=== PATIENT | female | born 1955 | race Caucasian/White ===

== ENCOUNTER 2018-02-27 16:40 | Emergency (ER) | payer MEDICAID ==
[~2018-02-27] VITALS: Ht 165.1 cm; Wt 80.0 kg
[~2018-02-27 16:40] MED LIST: ALBU6.7H INH; LEVO500T2 PO
[2018-02-27] MEDS ORDERED: METHYLPREDNISOLONE SOD SUCC 125 MG/2 ML VIAL IV STA (18:31)
[2018-02-27] MEDS ORDERED: IPRATROPIUM BROMIDE (0.02%) 0.5MG/2.5ML NEB HHN STA (18:31)
[2018-02-27] MEDS ORDERED: ALBUTEROL (0.083%) 2.5MG/3ML NEB HHN STA (18:31)
[2018-02-27 19:43] LABS: BASOPHILS % 0.7 % (0.0-2.0); EOSINOPHILS % 0.8 % (0.0-5.0); HEMATOCRIT. 56.1 % (36.0-48.0); HEMOGLOBIN. 17.9 g/dL (12.0-16.0); MEAN CORPUSCULAR HEMOGLOBIN 29.3 pg (28.0-32.0); MEAN CORPUSCULAR VOLUME 91.6 fL (81.0-99.0); MEAN PLATELET VOLUME 7.7 fl (7.4-10.4); MONOCYTES % 9.6 % (2.0-8.0); NEUTROPHILS % 63.9 % (40.0-76.0); PLATELET 268 x1000/uL (130-400); RED BLOOD CELL COUNT 6.12 mill/uL (4.2-5.4)
[2018-02-27 19:45] LABS: CHLORIDE 101 mEq/L (98-107)
[2018-02-27] MEDS ORDERED: LEVOFLOXACIN 250MG TABLET PO ONE (20:45)
[2018-02-27 23:29] VITALS: BP 116/75
== END 2018-02-27 23:30 | disposition home or self-care (01) ==
LOC: ER 16:50
DX: J06.9 Acute upper respiratory infection, unspecified (principal); J98.01 Acute bronchospasm
CPT/HCPCS: 36415; 71045; 80053; 83605; 83690; 83880; 84484; 85025; 87040; 93005; 96374; 99285; J2930; Z7610

== ENCOUNTER 2018-03-02 15:45 | Inpatient (IN) | payer MEDICAID ==
[~2018-03-02] VITALS: Ht 160 cm; Wt 83.9 kg
[2018-03-02] MEDS ORDERED: METHYLPREDNISOLONE SOD SUCC 125 MG/2 ML VIAL IV STA (16:11)
[2018-03-02] MEDS ORDERED: IPRATROPIUM/ALBUTEROL 0.5-3(2.5)MG/3ML NEB HHN ONE (16:15)
[2018-03-02 17:00] LABS: BASOPHILS % 0.5 % (0.0-2.0); HEMATOCRIT. 51.2 % (36.0-48.0); HEMOGLOBIN. 16.5 g/dL (12.0-16.0); LYMPHOCYTES % 18.8 % (20.0-50.0); MEAN CORPUSCULAR HEMOGLOBIN 29.3 pg (28.0-32.0); MEAN CORPUSCULAR VOLUME 91.3 fL (81.0-99.0); MONOCYTES % 2.9 % (2.0-8.0); NEUTROPHILS % 77.8 % (40.0-76.0); PLATELET 259 x1000/uL (130-400); RED BLOOD CELL COUNT 5.61 mill/uL (4.2-5.4); RED CELL DISTRIBUTION WIDTH 15.9 % (11.6-14.6)
[2018-03-02 17:03] LABS: CHLORIDE 100 mEq/L (98-107)
[2018-03-02 17:09] LABS: D-DIMER 0.28 mg/L FEU (<0.50); INR 1.1; PARTIAL THROMBOPLASTIN TIME 25.7 sec (23.4-31.0); PROTHROMBIN TIME 10.8 sec (9.1-11.1)
[2018-03-02] MEDS ORDERED: LEVOFLOXACIN 750MG PREMIX 150 ML IV ONE (17:15)
[2018-03-02 19:07] LABS: CLARITY URINE CLOUDY (CLEAR); COLOR URINE YELLOW (YELLOW); KETONES URINE NEGATIVE (NEGATIVE); LEUKOCYTE ESTERASE URINE TRACE (NEGATIVE); NITRITE URINE NEGATIVE (NEGATIVE); OCCULT BLOOD URINE NEGATIVE (NEGATIVE); PROTEIN URINE NEGATIVE (NEGATIVE); SPECIFIC GRAVITY URINE 1.024 (1.005-1.030)
[2018-03-02] MEDS ORDERED: MAGNESIUM/ALUMINUM HYDROXIDE/SIMETHICONE 30ML UDC PO PRN (19:30)
[2018-03-02] MEDS ORDERED: CLONIDINE 0.1MG TABLET PO PRN (19:30)
[2018-03-02] MEDS ORDERED: IBUPROFEN 600MG TABLET PO ONE (20:15)
[2018-03-02 21:45] VITALS: BP 137/82
[2018-03-02 21:56] LABS: *AMPHETAMINES SCREEN URINE NEGATIVE (NEGATIVE); *BARBITURATES SCREEN URINE NEGATIVE (NEGATIVE); *BENZODIAZEPINES SCREEN URINE NEGATIVE (NEGATIVE); *COCAINE SCREEN URINE NEGATIVE (NEGATIVE); CANNABINOID URINE SCREEN NEGATIVE (NEGATIVE); METHADONE URINE SCREEN NEGATIVE (NEGATIVE); OPIATES URINE SCREEN NEGATIVE (NEGATIVE); PHENCYCLIDINE URINE SCREEN NEGATIVE (NEGATIVE)
[2018-03-02] MEDS: GUAIFENESIN 200MG/10ML SUGAR FREE UDC PO PRN (21:56)
[2018-03-02] MEDS: METHYLPREDNISOLONE SOD SUCC 125 MG/2 ML VIAL IV SCH (21:57)
[2018-03-02] MEDS: BUDESONIDE 0.5MG/2ML NEB HHN SCH (22:42)
[2018-03-02] MEDS: IPRATROPIUM/ALBUTEROL 0.5-3(2.5)MG/3ML NEB INH PRN (22:43)
[2018-03-02 23:00] VITALS: BP 137/82
[2018-03-03] VITALS: BP 146/83
[2018-03-03 00:45] LABS: CHLORIDE 100 mEq/L (98-107)
[2018-03-03 00:54] LABS: CREATINE KINASE 74 IU/L (26-192)
[2018-03-03 00:59] LABS: CREATINE KINASE MB FRACTION 1.3 ng/mL (0.5-3.6)
[2018-03-03] MEDS: GUAIFENESIN 200MG/10ML SUGAR FREE UDC PO PRN ×3 (01:47→13:48)
[2018-03-03] MEDS ORDERED: DEXTROSE 50% WATER 50ML SYRINGE IV PRN (03:00)
[2018-03-03 04:00] VITALS: BP 107/55
[2018-03-03] MEDS: INSULIN LISPRO 100 UNITS/ML SUBCUT SCH ×4 (05:50→21:00)
[2018-03-03] MEDS: METHYLPREDNISOLONE SOD SUCC 125 MG/2 ML VIAL IV SCH ×2 (05:50→13:45)
[2018-03-03] MEDS: BLOOD SUGAR DIAGNOSTIC STRIP TEST SCH ×4 (05:50→21:03)
[2018-03-03 06:19] LABS: HEMATOCRIT. 51.2 % (36.0-48.0); HEMOGLOBIN. 16.7 g/dL (12.0-16.0); MEAN CORPUSCULAR HEMOGLOBIN 29.6 pg (28.0-32.0); MEAN CORPUSCULAR VOLUME 91.1 fL (81.0-99.0); MEAN PLATELET VOLUME 8.1 fl (7.4-10.4); PLATELET 265 x1000/uL (130-400); RED BLOOD CELL COUNT 5.62 mill/uL (4.2-5.4); RED CELL DISTRIBUTION WIDTH 15.9 % (11.6-14.6)
[2018-03-03 06:39] LABS: LDL CHOLESTEROL 105 mg/dL (5-100)
[2018-03-03 06:40] LABS: CREATINE KINASE 58 IU/L (26-192); HDL CHOLESTEROL 52 mg/dL (40-59)
[2018-03-03 06:42] LABS: CREATINE KINASE MB FRACTION < 1.0 ng/mL (0.5-3.6)
[2018-03-03 08:00] VITALS: BP 125/66
[2018-03-03] MEDS: ENOXAPARIN 40MG/0.4ML SYR SUBCUT SCH (09:10)
[2018-03-03] MEDS: ACETAMINOPHEN 325MG TABLET PO PRN (09:15)
[2018-03-03] MEDS: BUDESONIDE 0.5MG/2ML NEB HHN SCH ×2 (09:22→20:43)
[2018-03-03] MEDS: IPRATROPIUM/ALBUTEROL 0.5-3(2.5)MG/3ML NEB INH PRN ×2 (09:27→20:43)
[2018-03-03] MEDS: AMLODIPINE 2.5MG TABLET PO SCH ×2 (11:30→20:58)
[2018-03-03] MEDS: HYDROCODONE/ACETAMINOPHEN 5/325MG TABLET PO PRN ×2 (12:49→21:00)
[2018-03-03 12:54] LABS: PLATELET ESTIMATE NORMAL
[2018-03-03 16:00] VITALS: BP_SYST 119; BP_SYST 126; BP_DIAS 74; BP_DIAS 76
[2018-03-03] MEDS: LEVOFLOXACIN 500MG PREMIX 100 ML IV SCH (18:29)
[2018-03-03 19:30] VITALS: BP 147/65
[2018-03-03 20:00] VITALS: BP 123/72
[2018-03-03] MEDS: GUAIFENESIN 600MG ER TABLET PO SCH (20:58)
[2018-03-04] VITALS: BP 105/60
[2018-03-04] MEDS: IPRATROPIUM/ALBUTEROL 0.5-3(2.5)MG/3ML NEB INH PRN ×3 (00:22→07:40)
[2018-03-04] MEDS: HYDROCODONE/ACETAMINOPHEN 5/325MG TABLET PO PRN (02:28)
[2018-03-04 04:00] VITALS: BP 100/62
[2018-03-04] MEDS: BLOOD SUGAR DIAGNOSTIC STRIP TEST SCH ×4 (07:09→20:45)
[2018-03-04] MEDS: INSULIN LISPRO 100 UNITS/ML SUBCUT SCH ×4 (07:09→20:45)
[2018-03-04] MEDS: BUDESONIDE 0.5MG/2ML NEB HHN SCH ×2 (07:39→20:28)
[2018-03-04 08:00] VITALS: BP 106/62
[2018-03-04 08:22] LABS: HEMATOCRIT. 49.5 % (36.0-48.0); MEAN CORPUSCULAR HEMOGLOBIN 29.3 pg (28.0-32.0); MEAN CORPUSCULAR VOLUME 90.5 fL (81.0-99.0); MEAN PLATELET VOLUME 8.1 fl (7.4-10.4); PLATELET 252 x1000/uL (130-400); RED BLOOD CELL COUNT 5.47 mill/uL (4.2-5.4)
[2018-03-04 08:49] LABS: CHLORIDE 99 mEq/L (98-107)
[2018-03-04 08:57] LABS: PHOSPHORUS 2.8 mg/dL (2.5-4.9)
[2018-03-04 08:58] LABS: LDL CHOLESTEROL 106 mg/dL (5-100)
[2018-03-04 08:59] LABS: CREATINE KINASE 41 IU/L (26-192); CREATINE KINASE MB FRACTION < 1.0 ng/mL (0.5-3.6)
[2018-03-04 09:00] LABS: HDL CHOLESTEROL 49 mg/dL (40-59)
[2018-03-04] MEDS: AMLODIPINE 2.5MG TABLET PO SCH ×2 (09:00→20:41)
[2018-03-04] MEDS: GUAIFENESIN 600MG ER TABLET PO SCH ×2 (09:14→20:39)
[2018-03-04] MEDS: ENOXAPARIN 40MG/0.4ML SYR SUBCUT SCH (09:16)
[2018-03-04 12:00] VITALS: BP 105/65
[2018-03-04 13:16] LABS: PLATELET ESTIMATE NORMAL
[2018-03-04] MEDS ORDERED: POTASSIUM CHLORIDE 20MEQ TABLET SR PO NR (14:15)
[2018-03-04] MEDS ORDERED: POTASSIUM CHLORIDE 20MEQ TABLET SR PO SCH (15:10)
[2018-03-04] MEDS: LEVOFLOXACIN 500MG PREMIX 100 ML IV SCH (15:57)
[2018-03-04 16:00] VITALS: BP 101/69
[2018-03-04 20:00] VITALS: BP 114/58
[2018-03-04] MEDS: IPRATROPIUM/ALBUTEROL 0.5-3(2.5)MG/3ML NEB HHN SCH (20:29)
[2018-03-04] MEDS: MICONAZOLE NITRATE 2% OINT 71GM TOP SCH (20:40)
[2018-03-04] MEDS: DOCUSATE SODIUM 100MG CAPSULE PO PRN (21:47)
[2018-03-04] MEDS: GUAIFENESIN 200MG/10ML SUGAR FREE UDC PO PRN (23:45)
[2018-03-05] VITALS: BP_SYST 100; BP_SYST 110; BP_SYST 112; BP_DIAS 61; BP_DIAS 64; BP_DIAS 65
[2018-03-05] MEDS: IPRATROPIUM/ALBUTEROL 0.5-3(2.5)MG/3ML NEB HHN SCH ×4 (02:25→20:51)
[2018-03-05 04:00] VITALS: BP 99/61
[2018-03-05] MEDS: BLOOD SUGAR DIAGNOSTIC STRIP TEST SCH ×4 (06:43→20:43)
[2018-03-05] MEDS: INSULIN LISPRO 100 UNITS/ML SUBCUT SCH ×4 (06:43→20:43)
[2018-03-05 07:08] LABS: BASOPHILS % 0.4 % (0.0-2.0); EOSINOPHILS % 0.5 % (0.0-5.0); HEMATOCRIT. 50.7 % (36.0-48.0); HEMOGLOBIN. 16.2 g/dL (12.0-16.0); LYMPHOCYTES % 23.9 % (20.0-50.0); MEAN CORPUSCULAR HEMOGLOBIN 29.3 pg (28.0-32.0); MEAN CORPUSCULAR VOLUME 91.6 fL (81.0-99.0); MEAN PLATELET VOLUME 7.9 fl (7.4-10.4); NEUTROPHILS % 64.2 % (40.0-76.0); PLATELET 241 x1000/uL (130-400); RED BLOOD CELL COUNT 5.53 mill/uL (4.2-5.4); RED CELL DISTRIBUTION WIDTH 16.2 % (11.6-14.6)
[2018-03-05 07:31] LABS: CHLORIDE 100 mEq/L (98-107)
[2018-03-05 08:00] VITALS: BP 116/73
[2018-03-05] MEDS: AMLODIPINE 2.5MG TABLET PO SCH ×2 (09:00→20:43)
[2018-03-05] MEDS: BUDESONIDE 0.5MG/2ML NEB HHN SCH ×2 (09:36→20:51)
[2018-03-05] MEDS: ENOXAPARIN 40MG/0.4ML SYR SUBCUT SCH (10:04)
[2018-03-05] MEDS: GUAIFENESIN 600MG ER TABLET PO SCH ×2 (10:05→20:43)
[2018-03-05] MEDS: MICONAZOLE NITRATE 2% OINT 71GM TOP SCH ×2 (10:08→20:49)
[2018-03-05 12:00] VITALS: BP_SYST 104; BP_SYST 97; BP_SYST 98; BP_DIAS 57; BP_DIAS 61
[2018-03-05 16:00] VITALS: BP 99/62
[2018-03-05] MEDS: LEVOFLOXACIN 500MG PREMIX 100 ML IV SCH (16:58)
[2018-03-05 20:00] VITALS: BP 103/60
[2018-03-05] MEDS: ATORVASTATIN CALCIUM 20MG TABLET PO SCH (20:34)
[2018-03-05] MEDS: ACETAMINOPHEN 325MG TABLET PO PRN (20:34)
[2018-03-06] VITALS: BP_SYST 100; BP_SYST 113; BP_SYST 117; BP_DIAS 60; BP_DIAS 62; BP_DIAS 72
[2018-03-06 04:00] VITALS: BP 118/75
[2018-03-06] MEDS: INSULIN LISPRO 100 UNITS/ML SUBCUT SCH ×4 (06:11→21:00)
[2018-03-06] MEDS: BLOOD SUGAR DIAGNOSTIC STRIP TEST SCH ×4 (06:11→21:44)
[2018-03-06 06:19] LABS: BASOPHILS % 0.4 % (0.0-2.0); EOSINOPHILS % 0.9 % (0.0-5.0); HEMOGLOBIN. 16.6 g/dL (12.0-16.0); LYMPHOCYTES % 24.2 % (20.0-50.0); MEAN CORPUSCULAR HEMOGLOBIN 29.6 pg (28.0-32.0); MEAN CORPUSCULAR VOLUME 90.8 fL (81.0-99.0); MEAN PLATELET VOLUME 8.2 fl (7.4-10.4); MONOCYTES % 9.3 % (2.0-8.0); NEUTROPHILS % 65.2 % (40.0-76.0); PLATELET 239 x1000/uL (130-400); RED BLOOD CELL COUNT 5.62 mill/uL (4.2-5.4); RED CELL DISTRIBUTION WIDTH 16.6 % (11.6-14.6)
[2018-03-06 06:38] LABS: CHLORIDE 99 mEq/L (98-107)
[2018-03-06 08:00] VITALS: BP 100/55
[2018-03-06] MEDS: GUAIFENESIN 200MG/10ML SUGAR FREE UDC PO PRN ×2 (08:14→17:22)
[2018-03-06] MEDS: GUAIFENESIN 600MG ER TABLET PO SCH ×2 (08:14→21:51)
[2018-03-06] MEDS: AMLODIPINE 2.5MG TABLET PO SCH ×2 (08:15→21:51)
[2018-03-06] MEDS: MICONAZOLE NITRATE 2% OINT 71GM TOP SCH ×2 (08:15→21:51)
[2018-03-06] MEDS: ENOXAPARIN 40MG/0.4ML SYR SUBCUT SCH (08:15)
[2018-03-06] MEDS: IPRATROPIUM/ALBUTEROL 0.5-3(2.5)MG/3ML NEB HHN SCH ×2 (09:15→20:08)
[2018-03-06 12:00] VITALS: BP_SYST 110; BP_SYST 113; BP_SYST 117; BP_DIAS 60; BP_DIAS 70; BP_DIAS 78
[2018-03-06 16:00] VITALS: BP 134/84
[2018-03-06] MEDS ORDERED: LEVOFLOXACIN 500MG TABLET PO SCH (16:30)
[2018-03-06 20:00] VITALS: BP_SYST 102; BP_SYST 114; BP_DIAS 57; BP_DIAS 69; BP_DIAS 70
[2018-03-06] MEDS: ONDANSETRON HCL 4MG/2ML INJ IV PRN (20:43)
[2018-03-06] MEDS: ATORVASTATIN CALCIUM 20MG TABLET PO SCH (21:51)
[2018-03-07] VITALS (34 sets, daily range): BP systolic 83–125; BP diastolic 27–96
[2018-03-07] MEDS: HYDROCODONE/ACETAMINOPHEN 5/325MG TABLET PO PRN (00:38)
[2018-03-07] MEDS: IPRATROPIUM/ALBUTEROL 0.5-3(2.5)MG/3ML NEB HHN SCH ×5 (02:26→20:15)
[2018-03-07] MEDS: BLOOD SUGAR DIAGNOSTIC STRIP TEST SCH ×4 (05:49→20:58)
[2018-03-07 06:42] LABS: HEMATOCRIT. 52.1 % (36.0-48.0); HEMOGLOBIN. 16.7 g/dL (12.0-16.0); MEAN CORPUSCULAR HEMOGLOBIN 29.7 pg (28.0-32.0); MEAN CORPUSCULAR VOLUME 92.6 fL (81.0-99.0); MEAN PLATELET VOLUME 8.3 fl (7.4-10.4); PLATELET 224 x1000/uL (130-400); RED BLOOD CELL COUNT 5.63 mill/uL (4.2-5.4); RED CELL DISTRIBUTION WIDTH 15.9 % (11.6-14.6)
[2018-03-07 07:00] LABS: CHLORIDE 101 mEq/L (98-107)
[2018-03-07] MEDS: AMLODIPINE 2.5MG TABLET PO SCH (09:00)
[2018-03-07] MEDS: ENOXAPARIN 40MG/0.4ML SYR SUBCUT SCH (09:04)
[2018-03-07] MEDS: MICONAZOLE NITRATE 2% OINT 71GM TOP SCH ×2 (09:04→20:58)
[2018-03-07] MEDS: GUAIFENESIN 600MG ER TABLET PO SCH ×2 (09:05→21:00)
[2018-03-07] MEDS: INSULIN LISPRO 100 UNITS/ML SUBCUT SCH ×3 (12:15→20:58)
[2018-03-07] MEDS ORDERED: SODIUM CHLORIDE 0.9% 500 ML IV ONE (13:30)
[2018-03-07 14:01] LABS: BG BASE EXCESS 10.5 mmol/L (-2.0-2.0); BG CARBOXYHEMOGLOBIN 1.4 % (0.5-1.5); BG DEOXYHEMOGLOBIN 11.9 % (0.0-5.0); BG HCO3 ACT 44.9 mmol/L (22.0-26.0); BG METHEMOGLOBIN 0.4 % (0.0-1.5); BG OXYGEN SATURATION 87.9 % (92.0-98.5); BG OXYHEMOGLOBIN 86.3 % (94.0-97.0); BG PCO2 117.7 mmHg (35.0-45.0); BG PH 7.199 (7.350-7.450); BG PO2 58.9 mmHg (75.0-100.0); BG SAMPLE SITE RIGHT RADIAL; BG TOTAL HEMOGLOBIN 16.8 g/dL (12.0-18.0); BG VENT MODE NASAL CANNULA
[2018-03-07 15:42] LABS: BG BASE EXCESS 8.3 mmol/L (-2.0-2.0); BG BILEVEL POS AIRWAY PRESSURE 18/5; BG CARBOXYHEMOGLOBIN 1.4 % (0.5-1.5); BG DEOXYHEMOGLOBIN 7.5 % (0.0-5.0); BG HCO3 ACT 34.4 mmol/L (22.0-26.0); BG METHEMOGLOBIN 0.6 % (0.0-1.5); BG OXYGEN SATURATION 92.3 % (92.0-98.5); BG OXYHEMOGLOBIN 90.5 % (94.0-97.0); BG PH 7.438 (7.350-7.450); BG SAMPLE SITE RIGHT RADIAL; BG TOTAL HEMOGLOBIN 16.5 g/dL (12.0-18.0); BG VENT MODE MASK - BIPAP; BG VENT RATE 20 set
[2018-03-07] MEDS ORDERED: LORAZEPAM 2MG/ML CPJ IV NR (17:09)
[2018-03-07] MEDS: DILTIAZEM HCL 30MG TABLET PO SCH ×2 (18:00→23:41)
[2018-03-07 20:12] LABS: PLATELET ESTIMATE NORMAL
[2018-03-07] MEDS: SODIUM CHLORIDE 0.9% 1,000 ML IV SCH (20:53)
[2018-03-07] MEDS: ATORVASTATIN CALCIUM 20MG TABLET PO SCH (21:00)
[2018-03-07] MEDS: LEVOFLOXACIN 500MG PREMIX 100 ML IV SCH (21:46)
[2018-03-08] VITALS (96 sets, daily range): BP systolic 82–135; BP diastolic 22–76
[2018-03-08] MEDS: NOREPINEPHRINE 8 MG in DEXT 5% WATER 242 ML IV PRN (00:35)
[2018-03-08] MEDS: IPRATROPIUM/ALBUTEROL 0.5-3(2.5)MG/3ML NEB HHN SCH ×2 (01:37→07:34)
[2018-03-08] MEDS: DILTIAZEM HCL 30MG TABLET PO SCH ×4 (05:28→23:38)
[2018-03-08 06:32] LABS: BASOPHILS % 0.2 % (0.0-2.0); EOSINOPHILS % 0.2 % (0.0-5.0); HEMATOCRIT. 48.3 % (36.0-48.0); HEMOGLOBIN. 15.2 g/dL (12.0-16.0); LYMPHOCYTES % 8.6 % (20.0-50.0); MEAN CORPUSCULAR HEMOGLOBIN 29.2 pg (28.0-32.0); MEAN CORPUSCULAR VOLUME 92.7 fL (81.0-99.0); MEAN PLATELET VOLUME 8.4 fl (7.4-10.4); MONOCYTES % 7.4 % (2.0-8.0); NEUTROPHILS % 83.6 % (40.0-76.0); PLATELET 210 x1000/uL (130-400); RED CELL DISTRIBUTION WIDTH 15.5 % (11.6-14.6)
[2018-03-08 06:35] LABS: CHLORIDE 101 mEq/L (98-107)
[2018-03-08] MEDS: INSULIN LISPRO 100 UNITS/ML SUBCUT SCH ×4 (08:20→21:00)
[2018-03-08] MEDS: BLOOD SUGAR DIAGNOSTIC STRIP TEST SCH ×4 (08:23→21:22)
[2018-03-08] MEDS: MICONAZOLE NITRATE 2% OINT 71GM TOP SCH ×2 (08:40→21:10)
[2018-03-08] MEDS: ACETYLCYSTEINE 100MG/ML 10% VIAL 4ML INH SCH (08:50)
[2018-03-08 08:53] LABS: BG BASE EXCESS 10.4 mmol/L (-2.0-2.0); BG BILEVEL POS AIRWAY PRESSURE 15/5; BG CARBOXYHEMOGLOBIN 1.4 % (0.5-1.5); BG FRACTION INSPIRED OXYGEN 60; BG HCO3 ACT 40.9 mmol/L (22.0-26.0); BG METHEMOGLOBIN 0.3 % (0.0-1.5); BG OXYGEN SATURATION 96.9 % (92.0-98.5); BG OXYHEMOGLOBIN 95.3 % (94.0-97.0); BG PCO2 83.8 mmHg (35.0-45.0); BG PH 7.306 (7.350-7.450); BG PO2 91.2 mmHg (75.0-100.0); BG PRESSURE SUPPORT 10; BG SAMPLE SITE RIGHT RADIAL; BG TOTAL HEMOGLOBIN 15.5 g/dL (12.0-18.0); BG VENT MODE MASK - BIPAP; BG VENT RATE 20 set
[2018-03-08] MEDS: GUAIFENESIN 600MG ER TABLET PO SCH (09:25)
[2018-03-08] MEDS: SODIUM CHLORIDE 0.9% 1,000 ML IV SCH (09:26)
[2018-03-08] MEDS: ENOXAPARIN 40MG/0.4ML SYR SUBCUT SCH (09:26)
[2018-03-08] MEDS: LORAZEPAM 2MG/ML CPJ IV PRN (11:30)
[2018-03-08] MEDS: MORPHINE SULFATE 4 MG/ML CPJ (NOT FOR IM USE) IV PRN ×2 (12:22→16:30)
[2018-03-08] MEDS ORDERED: FUROSEMIDE 40MG/4ML VIAL IVP NR (12:45)
[2018-03-08] MEDS: ATORVASTATIN CALCIUM 20MG TABLET PO SCH (21:00)
[2018-03-08] MEDS: LEVOFLOXACIN 500MG PREMIX 100 ML IV SCH (21:10)
[2018-03-09] VITALS (96 sets, daily range): BP systolic 58–157; BP diastolic 25–110
[2018-03-09] MEDS: IPRATROPIUM/ALBUTEROL 0.5-3(2.5)MG/3ML NEB HHN SCH ×6 (00:43→20:03)
[2018-03-09] MEDS: ACETYLCYSTEINE 100MG/ML 10% VIAL 4ML INH SCH ×3 (00:43→16:55)
[2018-03-09] MEDS: NOREPINEPHRINE 8 MG in DEXT 5% WATER 242 ML IV PRN ×2 (03:51→16:29)
[2018-03-09] MEDS: DILTIAZEM HCL 30MG TABLET PO SCH ×4 (05:07→23:41)
[2018-03-09 06:21] LABS: HEMATOCRIT. 50.1 % (36.0-48.0); HEMOGLOBIN. 15.7 g/dL (12.0-16.0); MEAN CORPUSCULAR HEMOGLOBIN 29.5 pg (28.0-32.0); MEAN CORPUSCULAR VOLUME 94.2 fL (81.0-99.0); PLATELET 196 x1000/uL (130-400); RED BLOOD CELL COUNT 5.32 mill/uL (4.2-5.4); RED CELL DISTRIBUTION WIDTH 15.5 % (11.6-14.6)
[2018-03-09 06:28] LABS: CHLORIDE 96 mEq/L (98-107)
[2018-03-09 07:59] LABS: BG BASE EXCESS 14.8 mmol/L (-2.0-2.0); BG BILEVEL POS AIRWAY PRESSURE 18/5; BG CARBOXYHEMOGLOBIN 1.2 % (0.5-1.5); BG DEOXYHEMOGLOBIN 5.4 % (0.0-5.0); BG HCO3 ACT 47.7 mmol/L (22.0-26.0); BG METHEMOGLOBIN 0.3 % (0.0-1.5); BG OXYGEN SATURATION 94.5 % (92.0-98.5); BG OXYHEMOGLOBIN 93.1 % (94.0-97.0); BG PCO2 103.7 mmHg (35.0-45.0); BG PH 7.281 (7.350-7.450); BG PO2 63.5 mmHg (75.0-100.0); BG SAMPLE SITE RIGHT BRACHIAL; BG TOTAL HEMOGLOBIN 16.4 g/dL (12.0-18.0); BG VENT MODE MASK - BIPAP; BG VENT RATE 20 set
[2018-03-09] MEDS: INSULIN LISPRO 100 UNITS/ML SUBCUT SCH ×4 (08:20→20:40)
[2018-03-09] MEDS: BLOOD SUGAR DIAGNOSTIC STRIP TEST SCH ×4 (08:23→20:41)
[2018-03-09] MEDS: ENOXAPARIN 40MG/0.4ML SYR SUBCUT SCH (08:55)
[2018-03-09] MEDS: MICONAZOLE NITRATE 2% OINT 71GM TOP SCH ×2 (09:00→20:42)
[2018-03-09] MEDS: PROPOFOL 10MG/ML 100ML 100 ML IV PRN ×3 (10:24→19:01)
[2018-03-09 10:31] LABS: BG BASE EXCESS 12.7 mmol/L (-2.0-2.0); BG CARBOXYHEMOGLOBIN 1.4 % (0.5-1.5); BG DEOXYHEMOGLOBIN 0.6 % (0.0-5.0); BG HCO3 ACT 37.4 mmol/L (22.0-26.0); BG METHEMOGLOBIN 0.3 % (0.0-1.5); BG OXYGEN SATURATION 99.4 % (92.0-98.5); BG OXYHEMOGLOBIN 97.7 % (94.0-97.0); BG PCO2 46.3 mmHg (35.0-45.0); BG PH 7.525 (7.350-7.450); BG PO2 137.5 mmHg (75.0-100.0); BG SAMPLE SITE RIGHT RADIAL; BG TIDAL VOLUME(mL) 500 mL; BG VENT MODE VENT - A/C; BG VENT RATE 18 set
[2018-03-09 14:07] LABS: VITAMIN B12 SERUM 414 pg/mL (211-911)
[2018-03-09 14:13] LABS: PLATELET ESTIMATE NORMAL
[2018-03-09 14:14] LABS: FOLIC ACID (FOLATE) SERUM > 20.00 ng/mL (>5.38)
[2018-03-09] MEDS ORDERED: ACETAMINOPHEN 650MG SUPP PR PRN (16:45)
[2018-03-09] MEDS: ACETAMINOPHEN 650MG/20.3ML UDC PO PRN (17:08)
[2018-03-09] MEDS ORDERED: VANCOMYCIN 1250MG in DEXTROSE 5% WATER 250ML IV NR (18:00)
[2018-03-09] MEDS: AZTREONAM 2 GM in DEXT 5% WATER 100 ML IV SCH (18:15)
[2018-03-09 19:48] LABS: AMMONIA 16 uMol/L (<32)
[2018-03-09 19:53] LABS: T4 FREE 1.71 ng/dL (0.76-1.46)
[2018-03-09] MEDS: LEVOFLOXACIN 500MG PREMIX 100 ML IV SCH (20:39)
[2018-03-09] MEDS: ATORVASTATIN CALCIUM 20MG TABLET PO SCH (20:39)
[2018-03-10] VITALS (92 sets, daily range): BP systolic 91–150; BP diastolic 51–95
[2018-03-10] MEDS: PROPOFOL 10MG/ML 100ML 100 ML IV PRN ×4 (00:12→16:54)
[2018-03-10] MEDS: IPRATROPIUM/ALBUTEROL 0.5-3(2.5)MG/3ML NEB HHN SCH ×4 (01:50→20:38)
[2018-03-10] MEDS: ACETYLCYSTEINE 100MG/ML 10% VIAL 4ML INH SCH ×3 (01:51→20:38)
[2018-03-10] MEDS: NOREPINEPHRINE 8 MG in DEXT 5% WATER 242 ML IV PRN ×2 (03:32→12:19)
[2018-03-10] MEDS: DILTIAZEM HCL 30MG TABLET PO SCH ×4 (05:17→23:47)
[2018-03-10] MEDS: AZTREONAM 2 GM in DEXT 5% WATER 100 ML IV SCH ×2 (05:17→17:07)
[2018-03-10 06:46] LABS: AMMONIA 27 uMol/L (<32)
[2018-03-10] MEDS: DOCUSATE SODIUM 100MG CAPSULE PO PRN (07:42)
[2018-03-10] MEDS: ACETAMINOPHEN 650MG/20.3ML UDC PO PRN (07:42)
[2018-03-10] MEDS: INSULIN LISPRO 100 UNITS/ML SUBCUT SCH ×4 (08:20→20:32)
[2018-03-10] MEDS: BLOOD SUGAR DIAGNOSTIC STRIP TEST SCH ×4 (08:46→20:31)
[2018-03-10 08:59] LABS: BG BASE EXCESS 12.3 mmol/L (-2.0-2.0); BG CARBOXYHEMOGLOBIN 1.1 % (0.5-1.5); BG DEOXYHEMOGLOBIN 2.5 % (0.0-5.0); BG FRACTION INSPIRED OXYGEN 40; BG HCO3 ACT 36.4 mmol/L (22.0-26.0); BG METHEMOGLOBIN 0.3 % (0.0-1.5); BG OXYGEN SATURATION 97.5 % (92.0-98.5); BG OXYHEMOGLOBIN 96.1 % (94.0-97.0); BG PCO2 43.2 mmHg (35.0-45.0); BG PH 7.543 (7.350-7.450); BG PO2 76.7 mmHg (75.0-100.0); BG SAMPLE SITE RIGHT RADIAL; BG TIDAL VOLUME(mL) 500 mL; BG TOTAL HEMOGLOBIN 16.4 g/dL (12.0-18.0); BG VENT MODE VENT - A/C; BG VENT RATE 14 set
[2018-03-10 09:20] LABS: BASOPHILS % 0.1 % (0.0-2.0); EOSINOPHILS % 0.3 % (0.0-5.0); HEMATOCRIT. 47.6 % (36.0-48.0); LYMPHOCYTES % 10.8 % (20.0-50.0); MEAN CORPUSCULAR HEMOGLOBIN 28.7 pg (28.0-32.0); MEAN CORPUSCULAR VOLUME 90.9 fL (81.0-99.0); MEAN PLATELET VOLUME 8.4 fl (7.4-10.4); MONOCYTES % 12.9 % (2.0-8.0); NEUTROPHILS % 75.9 % (40.0-76.0); PLATELET 252 x1000/uL (130-400); RED BLOOD CELL COUNT 5.24 mill/uL (4.2-5.4); RED CELL DISTRIBUTION WIDTH 15.1 % (11.6-14.6)
[2018-03-10 09:24] LABS: CHLORIDE 95 mEq/L (98-107)
[2018-03-10] MEDS: ENOXAPARIN 40MG/0.4ML SYR SUBCUT SCH (09:48)
[2018-03-10] MEDS: MICONAZOLE NITRATE 2% OINT 71GM TOP SCH ×2 (09:48→20:31)
[2018-03-10] MEDS ORDERED: BISACODYL 10MG SUPP PR PRN ×2 (11:15→13:15)
[2018-03-10] MEDS ORDERED: LACTULOSE 20G/30ML UDC PO SCH (11:15)
[2018-03-10] MEDS ORDERED: DOCUSATE SODIUM SUGAR FREE 100MG/10ML UDC NG SCH (11:15)
[2018-03-10] MEDS ORDERED: VANCOMYCIN 1250MG in DEXTROSE 5% WATER 250ML IV SCH (12:00)
[2018-03-10] MEDS ORDERED: KCL 20MEQ/100ML PREMIX 100 ML IV NR (12:00)
[2018-03-10] MEDS ORDERED: SENNOSIDES/DOCUSATE SOD 8.6/50MG TABLET PO PRN (13:15)
[2018-03-10] MEDS: ATORVASTATIN CALCIUM 20MG TABLET PO SCH (20:30)
[2018-03-10] MEDS: LEVOFLOXACIN 500MG PREMIX 100 ML IV SCH (20:30)
[2018-03-10] MEDS: VANCOMYCIN 750 MG PREMIX 150 ML IV SCH (23:47)
[2018-03-11] VITALS (92 sets, daily range): BP systolic 71–149; BP diastolic 22–76
[2018-03-11] MEDS: NOREPINEPHRINE 8 MG in DEXT 5% WATER 242 ML IV PRN ×2 (00:50→15:12)
[2018-03-11] MEDS: PROPOFOL 10MG/ML 100ML 100 ML IV PRN ×4 (02:47→23:45)
[2018-03-11 04:17] LABS: HIV SCREEN 4G Non Reactive (Non Reactive)
[2018-03-11] MEDS: AZTREONAM 2 GM in DEXT 5% WATER 100 ML IV SCH ×2 (05:03→17:52)
[2018-03-11] MEDS: DILTIAZEM HCL 30MG TABLET PO SCH ×4 (05:03→23:37)
[2018-03-11 05:28] LABS: BASOPHILS % 0.6 % (0.0-2.0); EOSINOPHILS % 0.7 % (0.0-5.0); HEMATOCRIT. 48.4 % (36.0-48.0); HEMOGLOBIN. 15.6 g/dL (12.0-16.0); LYMPHOCYTES % 9.9 % (20.0-50.0); MEAN CORPUSCULAR HEMOGLOBIN 28.8 pg (28.0-32.0); MEAN CORPUSCULAR VOLUME 89.2 fL (81.0-99.0); MEAN PLATELET VOLUME 8.2 fl (7.4-10.4); MONOCYTES % 11.1 % (2.0-8.0); NEUTROPHILS % 77.7 % (40.0-76.0); PLATELET 241 x1000/uL (130-400); RED BLOOD CELL COUNT 5.42 mill/uL (4.2-5.4); RED CELL DISTRIBUTION WIDTH 15.5 % (11.6-14.6)
[2018-03-11 05:47] LABS: AMMONIA 46 uMol/L (<32)
[2018-03-11 05:54] LABS: CHLORIDE 99 mEq/L (98-107)
[2018-03-11 06:25] LABS: PHOSPHORUS 0.5 mg/dL (2.5-4.9)
[2018-03-11 07:43] LABS: BG BASE EXCESS 5.5 mmol/L (-2.0-2.0); BG CARBOXYHEMOGLOBIN 0.8 % (0.5-1.5); BG DEOXYHEMOGLOBIN 3.7 % (0.0-5.0); BG HCO3 ACT 27.3 mmol/L (22.0-26.0); BG METHEMOGLOBIN 0.2 % (0.0-1.5); BG OXYGEN SATURATION 96.3 % (92.0-98.5); BG OXYHEMOGLOBIN 95.3 % (94.0-97.0); BG PCO2 31.9 mmHg (35.0-45.0); BG PO2 64.3 mmHg (75.0-100.0); BG SAMPLE SITE RIGHT RADIAL; BG TIDAL VOLUME(mL) 500 mL; BG TOTAL HEMOGLOBIN 16.1 g/dL (12.0-18.0); BG VENT MODE VENT - A/C; BG VENT RATE 12 set
[2018-03-11] MEDS: INSULIN LISPRO 100 UNITS/ML SUBCUT SCH ×4 (08:20→21:14)
[2018-03-11] MEDS: BLOOD SUGAR DIAGNOSTIC STRIP TEST SCH ×4 (08:25→21:14)
[2018-03-11] MEDS: DOCUSATE SODIUM SUGAR FREE 100MG/10ML UDC NG SCH (08:33)
[2018-03-11] MEDS: MICONAZOLE NITRATE 2% OINT 71GM TOP SCH ×2 (08:34→21:15)
[2018-03-11] MEDS: ENOXAPARIN 40MG/0.4ML SYR SUBCUT SCH (08:34)
[2018-03-11] MEDS: ACETYLCYSTEINE 100MG/ML 10% VIAL 4ML INH SCH (08:58)
[2018-03-11] MEDS: IPRATROPIUM/ALBUTEROL 0.5-3(2.5)MG/3ML NEB HHN SCH ×4 (08:58→20:03)
[2018-03-11] MEDS ORDERED: POTASSIUM PHOS,M-BASIC-D-BASIC 30 MMOL in DEXT 5% WATER 500 ML IV SCH (09:00)
[2018-03-11] MEDS: VANCOMYCIN 750 MG PREMIX 150 ML IV SCH (11:56)
[2018-03-11 16:43] LABS: CHLORIDE 100 mEq/L (98-107)
[2018-03-11] MEDS ORDERED: POTASSIUM CHLORIDE INJ 40 MEQ in DEXT 5% WATER 250 ML IV NR (21:00)
[2018-03-11] MEDS: PANTOPRAZOLE SODIUM 40 MG/VIAL IV SCH (21:14)
[2018-03-11] MEDS: ATORVASTATIN CALCIUM 20MG TABLET PO SCH (21:14)
[2018-03-11] MEDS: LEVOFLOXACIN 500MG PREMIX 100 ML IV SCH (21:14)
[2018-03-12] VITALS (95 sets, daily range): BP systolic 81–137; BP diastolic 41–82
[2018-03-12] MEDS: ACETYLCYSTEINE 100MG/ML 10% VIAL 4ML INH SCH ×3 (00:18→16:08)
[2018-03-12] MEDS: IPRATROPIUM/ALBUTEROL 0.5-3(2.5)MG/3ML NEB HHN SCH ×5 (00:18→20:28)
[2018-03-12 01:40] LABS: CHLORIDE 103 mEq/L (98-107)
[2018-03-12] MEDS: VANCOMYCIN 750 MG PREMIX 150 ML IV SCH ×3 (01:43→23:45)
[2018-03-12] MEDS: NOREPINEPHRINE 8 MG in DEXT 5% WATER 242 ML IV PRN ×2 (01:52→19:14)
[2018-03-12] MEDS: PROPOFOL 10MG/ML 100ML 100 ML IV PRN ×5 (04:14→23:45)
[2018-03-12] MEDS: IPRATROPIUM/ALBUTEROL 0.5-3(2.5)MG/3ML NEB INH PRN (04:21)
[2018-03-12] MEDS ORDERED: POTASSIUM CHLORIDE INJ 40 MEQ in DEXT 5% WATER 250 ML IV NR (05:00)
[2018-03-12] MEDS: INSULIN LISPRO 100 UNITS/ML SUBCUT SCH ×3 (05:57→18:00)
[2018-03-12] MEDS: DILTIAZEM HCL 30MG TABLET PO SCH ×4 (05:57→23:34)
[2018-03-12] MEDS: BLOOD SUGAR DIAGNOSTIC STRIP TEST SCH ×3 (05:57→18:00)
[2018-03-12] MEDS: AZTREONAM 2 GM in DEXT 5% WATER 100 ML IV SCH ×2 (05:59→18:09)
[2018-03-12] MEDS ORDERED: LOPERAMIDE 2 MG/10 ML UDC NG PRN (07:30)
[2018-03-12] MEDS ORDERED: POTASSIUM CHLORIDE INJ 40 MEQ in DEXT 5% WATER 250 ML IV ONE (07:30)
[2018-03-12 08:27] LABS: BG BASE EXCESS 8.3 mmol/L (-2.0-2.0); BG CARBOXYHEMOGLOBIN 0.9 % (0.5-1.5); BG DEOXYHEMOGLOBIN 1.2 % (0.0-5.0); BG FRACTION INSPIRED OXYGEN 40; BG HCO3 ACT 29.5 mmol/L (22.0-26.0); BG METHEMOGLOBIN 0.2 % (0.0-1.5); BG OXYGEN SATURATION 98.8 % (92.0-98.5); BG OXYHEMOGLOBIN 97.7 % (94.0-97.0); BG PCO2 30.7 mmHg (35.0-45.0); BG PO2 115.8 mmHg (75.0-100.0); BG SAMPLE SITE RIGHT RADIAL; BG TIDAL VOLUME(mL) 500 mL; BG TOTAL HEMOGLOBIN 15.2 g/dL (12.0-18.0); BG VENT MODE VENT - A/C; BG VENT RATE 12 set
[2018-03-12] MEDS: DOCUSATE SODIUM SUGAR FREE 100MG/10ML UDC NG SCH (09:00)
[2018-03-12] MEDS: ENOXAPARIN 40MG/0.4ML SYR SUBCUT SCH (09:13)
[2018-03-12] MEDS: PANTOPRAZOLE SODIUM 40 MG/VIAL IV SCH (09:13)
[2018-03-12] MEDS: MICONAZOLE NITRATE 2% OINT 71GM TOP SCH ×2 (09:15→21:07)
[2018-03-12 10:57] LABS: BASOPHILS % 0.4 % (0.0-2.0); EOSINOPHILS % 1.2 % (0.0-5.0); HEMATOCRIT. 45.2 % (36.0-48.0); HEMOGLOBIN. 14.8 g/dL (12.0-16.0); LYMPHOCYTES % 14.7 % (20.0-50.0); MEAN CORPUSCULAR VOLUME 88.7 fL (81.0-99.0); MEAN PLATELET VOLUME 8.4 fl (7.4-10.4); MONOCYTES % 12.6 % (2.0-8.0); NEUTROPHILS % 71.1 % (40.0-76.0); PLATELET 281 x1000/uL (130-400); RED CELL DISTRIBUTION WIDTH 15.6 % (11.6-14.6)
[2018-03-12 11:10] LABS: CHLORIDE 103 mEq/L (98-107)
[2018-03-12 11:14] LABS: AMMONIA 39 uMol/L (<32)
[2018-03-12 11:16] LABS: PHOSPHORUS 1.3 mg/dL (2.5-4.9)
[2018-03-12] MEDS: LORAZEPAM 2MG/ML CPJ IV PRN (11:42)
[2018-03-12] MEDS: DEXT 5%/0.45% NACL KCL 20MEQ/L 1,000 ML IV SCH (12:37)
[2018-03-12] MEDS ORDERED: MAGNESIUM 2 G PREMIX 50 ML IV NR (13:30)
[2018-03-12] MEDS ORDERED: SODIUM PHOS,M-BASIC-D-BASIC 15 MM in DEXT 5% WATER 245 ML IV NR (14:00)
[2018-03-12] MEDS: LACTOBACILLUS GG CAPSULE PO SCH (14:58)
[2018-03-12 15:33] LABS: BG BASE EXCESS 4.4 mmol/L (-2.0-2.0); BG CARBOXYHEMOGLOBIN 0.7 % (0.5-1.5); BG DEOXYHEMOGLOBIN 3.4 % (0.0-5.0); BG HCO3 ACT 30.2 mmol/L (22.0-26.0); BG METHEMOGLOBIN 0.3 % (0.0-1.5); BG OXYGEN SATURATION 96.6 % (92.0-98.5); BG OXYHEMOGLOBIN 95.6 % (94.0-97.0); BG PCO2 48.7 mmHg (35.0-45.0); BG PO2 82.4 mmHg (75.0-100.0); BG SAMPLE SITE RIGHT RADIAL; BG TIDAL VOLUME(mL) 450 mL; BG TOTAL HEMOGLOBIN 15.5 g/dL (12.0-18.0); BG VENT MODE VENT - A/C; BG VENT RATE 8 set
[2018-03-12] MEDS: ATORVASTATIN CALCIUM 20MG TABLET PO SCH (21:06)
[2018-03-12] MEDS: LEVOFLOXACIN 500MG PREMIX 100 ML IV SCH (21:07)
[2018-03-12] MEDS: METOCLOPRAMIDE HCL 10MG/2ML VIAL IV SCH (21:07)
[2018-03-13] VITALS (93 sets, daily range): BP systolic 57–150; BP diastolic 31–80
[2018-03-13] MEDS: IPRATROPIUM/ALBUTEROL 0.5-3(2.5)MG/3ML NEB HHN SCH ×4 (00:28→20:10)
[2018-03-13] MEDS: ACETYLCYSTEINE 100MG/ML 10% VIAL 4ML INH SCH ×3 (00:29→14:42)
[2018-03-13] MEDS: PROPOFOL 10MG/ML 100ML 100 ML IV PRN ×3 (04:07→17:40)
[2018-03-13] MEDS: DILTIAZEM HCL 30MG TABLET PO SCH ×3 (05:07→17:49)
[2018-03-13] MEDS: METOCLOPRAMIDE HCL 10MG/2ML VIAL IV SCH ×2 (05:11→13:55)
[2018-03-13] MEDS: AZTREONAM 2 GM in DEXT 5% WATER 100 ML IV SCH ×2 (05:11→17:34)
[2018-03-13] MEDS: DEXT 5%/0.45% NACL KCL 20MEQ/L 1,000 ML IV SCH ×3 (05:12→18:06)
[2018-03-13] MEDS: INSULIN LISPRO 100 UNITS/ML SUBCUT SCH ×4 (05:18→18:00)
[2018-03-13] MEDS: BLOOD SUGAR DIAGNOSTIC STRIP TEST SCH ×4 (05:18→18:05)
[2018-03-13] MEDS: NOREPINEPHRINE 8 MG in DEXT 5% WATER 242 ML IV PRN ×2 (07:00→20:50)
[2018-03-13 08:33] LABS: BG BASE EXCESS 3.6 mmol/L (-2.0-2.0); BG CARBOXYHEMOGLOBIN 1.2 % (0.5-1.5); BG DEOXYHEMOGLOBIN 2.9 % (0.0-5.0); BG FRACTION INSPIRED OXYGEN 40; BG HCO3 ACT 28.8 mmol/L (22.0-26.0); BG METHEMOGLOBIN 0.2 % (0.0-1.5); BG OXYGEN SATURATION 97.1 % (92.0-98.5); BG OXYHEMOGLOBIN 95.7 % (94.0-97.0); BG PCO2 45.6 mmHg (35.0-45.0); BG PH 7.419 (7.350-7.450); BG PO2 86.2 mmHg (75.0-100.0); BG SAMPLE SITE RIGHT RADIAL; BG TIDAL VOLUME(mL) 450 mL; BG TOTAL HEMOGLOBIN 15.3 g/dL (12.0-18.0); BG VENT MODE VENT - A/C; BG VENT RATE 8 set
[2018-03-13] MEDS: ENOXAPARIN 40MG/0.4ML SYR SUBCUT SCH (08:38)
[2018-03-13] MEDS ORDERED: DIATR MEGLU/DIATRIZOATE SOLN 30ML PO SCH (09:00)
[2018-03-13] MEDS: DOCUSATE SODIUM SUGAR FREE 100MG/10ML UDC NG SCH (09:00)
[2018-03-13 09:04] LABS: BASOPHILS % 0.8 % (0.0-2.0); EOSINOPHILS % 2.6 % (0.0-5.0); HEMATOCRIT. 46.9 % (36.0-48.0); HEMOGLOBIN. 15.2 g/dL (12.0-16.0); LYMPHOCYTES % 8.9 % (20.0-50.0); MEAN CORPUSCULAR HEMOGLOBIN 29.2 pg (28.0-32.0); MEAN CORPUSCULAR VOLUME 90.1 fL (81.0-99.0); MEAN PLATELET VOLUME 7.8 fl (7.4-10.4); MONOCYTES % 10.5 % (2.0-8.0); NEUTROPHILS % 77.2 % (40.0-76.0); PLATELET 266 x1000/uL (130-400); RED BLOOD CELL COUNT 5.21 mill/uL (4.2-5.4); RED CELL DISTRIBUTION WIDTH 15.9 % (11.6-14.6)
[2018-03-13 09:29] LABS: CHLORIDE 103 mEq/L (98-107)
[2018-03-13] MEDS ORDERED: IOHEXOL-300 100 ML BOTTLE ONE (09:33)
[2018-03-13 09:39] LABS: PHOSPHORUS 2.9 mg/dL (2.5-4.9)
[2018-03-13] MEDS: PANTOPRAZOLE SODIUM 40 MG/VIAL IV SCH (09:52)
[2018-03-13] MEDS: MICONAZOLE NITRATE 2% OINT 71GM TOP SCH ×2 (09:53→21:35)
[2018-03-13] MEDS: LACTOBACILLUS GG CAPSULE PO SCH (09:58)
[2018-03-13] MEDS ORDERED: POTASSIUM CHLORIDE 20MEQ TABLET SR PO NR (13:45)
[2018-03-13 14:25] LABS: AMMONIA 10 uMol/L (<32)
[2018-03-13] MEDS: VANCOMYCIN 1 G PREMIX 200 ML IV SCH (17:34)
[2018-03-13] MEDS: ATORVASTATIN CALCIUM 20MG TABLET PO SCH (21:34)
[2018-03-13] MEDS: LEVOFLOXACIN 500MG PREMIX 100 ML IV SCH (21:34)
[2018-03-14] VITALS (88 sets, daily range): BP systolic 83–147; BP diastolic 27–89
[2018-03-14] MEDS: BLOOD SUGAR DIAGNOSTIC STRIP TEST SCH ×4 (00:15→17:43)
[2018-03-14] MEDS: PROPOFOL 10MG/ML 100ML 100 ML IV PRN ×2 (00:17→06:16)
[2018-03-14] MEDS: IPRATROPIUM/ALBUTEROL 0.5-3(2.5)MG/3ML NEB HHN SCH ×4 (01:39→20:04)
[2018-03-14] MEDS: INSULIN LISPRO 100 UNITS/ML SUBCUT SCH ×4 (06:00→17:44)
[2018-03-14] MEDS: DILTIAZEM HCL 30MG TABLET PO SCH ×4 (06:00→17:47)
[2018-03-14 06:06] LABS: EOSINOPHILS % 2.5 % (0.0-5.0); HEMATOCRIT. 43.9 % (36.0-48.0); HEMOGLOBIN. 14.1 g/dL (12.0-16.0); LYMPHOCYTES % 8.7 % (20.0-50.0); MEAN CORPUSCULAR VOLUME 90.7 fL (81.0-99.0); MEAN PLATELET VOLUME 7.6 fl (7.4-10.4); MONOCYTES % 12.5 % (2.0-8.0); NEUTROPHILS % 75.3 % (40.0-76.0); PLATELET 280 x1000/uL (130-400); RED BLOOD CELL COUNT 4.84 mill/uL (4.2-5.4); RED CELL DISTRIBUTION WIDTH 15.8 % (11.6-14.6)
[2018-03-14] MEDS: DEXT 5%/0.45% NACL KCL 20MEQ/L 1,000 ML IV SCH ×2 (06:16→14:29)
[2018-03-14] MEDS: AZTREONAM 2 GM in DEXT 5% WATER 100 ML IV SCH ×2 (06:16→17:48)
[2018-03-14 07:40] LABS: BG BASE EXCESS 1.1 mmol/L (-2.0-2.0); BG CARBOXYHEMOGLOBIN 0.5 % (0.5-1.5); BG DEOXYHEMOGLOBIN 3.9 % (0.0-5.0); BG HCO3 ACT 27.2 mmol/L (22.0-26.0); BG METHEMOGLOBIN 0.1 % (0.0-1.5); BG OXYGEN SATURATION 96.1 % (92.0-98.5); BG OXYHEMOGLOBIN 95.5 % (94.0-97.0); BG PCO2 48.5 mmHg (35.0-45.0); BG PH 7.367 (7.350-7.450); BG PO2 77.2 mmHg (75.0-100.0); BG SAMPLE SITE RIGHT BRACHIAL; BG TIDAL VOLUME(mL) 450 mL; BG TOTAL HEMOGLOBIN 15.1 g/dL (12.0-18.0); BG VENT MODE VENT - A/C; BG VENT RATE 8 set
[2018-03-14 08:08] LABS: CHLORIDE 108 mEq/L (98-107)
[2018-03-14] MEDS: ENOXAPARIN 40MG/0.4ML SYR SUBCUT SCH (09:16)
[2018-03-14] MEDS: DOCUSATE SODIUM SUGAR FREE 100MG/10ML UDC NG SCH (09:16)
[2018-03-14] MEDS: LACTOBACILLUS GG CAPSULE PO SCH (09:18)
[2018-03-14] MEDS: PANTOPRAZOLE SODIUM 40 MG/VIAL IV SCH (09:18)
[2018-03-14] MEDS: MICONAZOLE NITRATE 2% OINT 71GM TOP SCH ×2 (09:19→22:07)
[2018-03-14] MEDS ORDERED: PROPOFOL 10MG/ML 100ML 100 ML IV PRN (10:15)
[2018-03-14] MEDS: VANCOMYCIN 1 G PREMIX 200 ML IV SCH (11:39)
[2018-03-14] MEDS: NOREPINEPHRINE 8 MG in DEXT 5% WATER 242 ML IV PRN (11:49)
[2018-03-14 13:15] LABS: BG BASE EXCESS 3.6 mmol/L (-2.0-2.0); BG CARBOXYHEMOGLOBIN 0.8 % (0.5-1.5); BG DEOXYHEMOGLOBIN 3.8 % (0.0-5.0); BG FRACTION INSPIRED OXYGEN 40; BG HCO3 ACT 30.9 mmol/L (22.0-26.0); BG METHEMOGLOBIN 0.2 % (0.0-1.5); BG OXYGEN SATURATION 96.2 % (92.0-98.5); BG OXYHEMOGLOBIN 95.2 % (94.0-97.0); BG PCO2 57.7 mmHg (35.0-45.0); BG PH 7.347 (7.350-7.450); BG PO2 81.3 mmHg (75.0-100.0); BG PRESSURE SUPPORT 8; BG SAMPLE SITE LEFT RADIAL; BG TOTAL HEMOGLOBIN 14.9 g/dL (12.0-18.0); BG VENT MODE VENT - CPAP
[2018-03-14] MEDS: ACETAMINOPHEN 650MG/20.3ML UDC PO PRN (18:36)
[2018-03-14] MEDS: LEVOFLOXACIN 500MG PREMIX 100 ML IV SCH (22:08)
[2018-03-14] MEDS: ATORVASTATIN CALCIUM 20MG TABLET PO SCH (22:08)
[2018-03-15] VITALS (65 sets, daily range): BP systolic 53–169; BP diastolic 13–92
[2018-03-15] MEDS: IPRATROPIUM/ALBUTEROL 0.5-3(2.5)MG/3ML NEB HHN SCH ×4 (01:49→21:25)
[2018-03-15] MEDS: AZTREONAM 2 GM in DEXT 5% WATER 100 ML IV SCH ×2 (05:55→18:33)
[2018-03-15] MEDS: INSULIN LISPRO 100 UNITS/ML SUBCUT SCH ×3 (06:00→12:00)
[2018-03-15] MEDS: VANCOMYCIN 1 G PREMIX 200 ML IV SCH (06:19)
[2018-03-15] MEDS: DILTIAZEM HCL 30MG TABLET PO SCH ×4 (06:19→17:34)
[2018-03-15] MEDS: BLOOD SUGAR DIAGNOSTIC STRIP TEST SCH ×3 (06:20→12:00)
[2018-03-15 06:25] LABS: BASOPHILS % 0.7 % (0.0-2.0); EOSINOPHILS % 1.5 % (0.0-5.0); HEMOGLOBIN. 14.3 g/dL (12.0-16.0); LYMPHOCYTES % 8.6 % (20.0-50.0); MEAN CORPUSCULAR HEMOGLOBIN 28.7 pg (28.0-32.0); MEAN CORPUSCULAR VOLUME 90.2 fL (81.0-99.0); MEAN PLATELET VOLUME 7.6 fl (7.4-10.4); MONOCYTES % 13.5 % (2.0-8.0); NEUTROPHILS % 75.7 % (40.0-76.0); PLATELET 284 x1000/uL (130-400); RED BLOOD CELL COUNT 4.99 mill/uL (4.2-5.4); RED CELL DISTRIBUTION WIDTH 15.7 % (11.6-14.6)
[2018-03-15 06:26] LABS: CHLORIDE 107 mEq/L (98-107)
[2018-03-15 07:37] LABS: BG BASE EXCESS 4.4 mmol/L (-2.0-2.0); BG BILEVEL POS AIRWAY PRESSURE 18/5; BG CARBOXYHEMOGLOBIN 1.1 % (0.5-1.5); BG HCO3 ACT 29.6 mmol/L (22.0-26.0); BG METHEMOGLOBIN 0.3 % (0.0-1.5); BG OXYHEMOGLOBIN 97.6 % (94.0-97.0); BG PCO2 46.4 mmHg (35.0-45.0); BG PH 7.423 (7.350-7.450); BG PO2 139.3 mmHg (75.0-100.0); BG SAMPLE SITE RIGHT RADIAL; BG TOTAL HEMOGLOBIN 14.6 g/dL (12.0-18.0); BG VENT MODE MASK - BIPAP; BG VENT RATE 18 set
[2018-03-15] MEDS: ACETAMINOPHEN 650MG/20.3ML UDC PO PRN (09:58)
[2018-03-15] MEDS: DOCUSATE SODIUM SUGAR FREE 100MG/10ML UDC NG SCH (09:58)
[2018-03-15] MEDS: ENOXAPARIN 40MG/0.4ML SYR SUBCUT SCH (09:59)
[2018-03-15] MEDS: MICONAZOLE NITRATE 2% OINT 71GM TOP SCH ×2 (09:59→20:37)
[2018-03-15] MEDS: PANTOPRAZOLE SODIUM 40 MG/VIAL IV SCH (09:59)
[2018-03-15] MEDS: LACTOBACILLUS GG CAPSULE PO SCH (09:59)
[2018-03-15 13:11] LABS: FECAL FAT NEUTRAL Normal (.); FECAL FAT TOTAL Normal (.)
[2018-03-15] MEDS: IPRATROPIUM/ALBUTEROL 0.5-3(2.5)MG/3ML NEB INH PRN (15:33)
[2018-03-15 16:36] LABS: BG BASE EXCESS -1.4 mmol/L (-2.0-2.0); BG BILEVEL POS AIRWAY PRESSURE 15/5; BG CARBOXYHEMOGLOBIN 0.8 % (0.5-1.5); BG DEOXYHEMOGLOBIN 10.3 % (0.0-5.0); BG FRACTION INSPIRED OXYGEN 100; BG HCO3 ACT 26.5 mmol/L (22.0-26.0); BG METHEMOGLOBIN 0.3 % (0.0-1.5); BG OXYGEN SATURATION 89.6 % (92.0-98.5); BG OXYHEMOGLOBIN 88.6 % (94.0-97.0); BG PCO2 56.7 mmHg (35.0-45.0); BG PH 7.287 (7.350-7.450); BG PO2 59.1 mmHg (75.0-100.0); BG SAMPLE SITE RIGHT RADIAL; BG TOTAL HEMOGLOBIN 16.1 g/dL (12.0-18.0); BG VENT MODE MASK - BIPAP; BG VENT RATE 18 set
[2018-03-15] MEDS: DEXT 5%/0.45% NACL 1000ML 1,000 ML IV SCH (18:33)
[2018-03-15] MEDS: ONDANSETRON HCL 4MG/2ML INJ IV PRN (20:37)
[2018-03-15] MEDS: ATORVASTATIN CALCIUM 20MG TABLET PO SCH (20:37)
[2018-03-15] MEDS ORDERED: LEVOFLOXACIN 500MG PREMIX 100 ML IV SCH (21:00)
[2018-03-15] MEDS: NOREPINEPHRINE 8 MG in DEXT 5% WATER 242 ML IV PRN (22:32)
[2018-03-16] VITALS (75 sets, daily range): BP systolic 78–131; BP diastolic 45–91
[2018-03-16] MEDS: ACETYLCYSTEINE 100MG/ML 10% VIAL 4ML INH SCH ×4 (00:30→15:45)
[2018-03-16] MEDS: VANCOMYCIN 1 G PREMIX 200 ML IV SCH ×2 (01:39→18:03)
[2018-03-16] MEDS: DILTIAZEM HCL 30MG TABLET PO SCH ×5 (01:40→17:04)
[2018-03-16] MEDS: IPRATROPIUM/ALBUTEROL 0.5-3(2.5)MG/3ML NEB HHN SCH ×5 (02:25→20:21)
[2018-03-16] MEDS: DEXT 5%/0.45% NACL 1000ML 1,000 ML IV SCH ×2 (04:44→14:22)
[2018-03-16] MEDS: AZTREONAM 2 GM in DEXT 5% WATER 100 ML IV SCH ×2 (05:24→17:08)
[2018-03-16 05:40] LABS: HEMATOCRIT. 44.2 % (36.0-48.0); HEMOGLOBIN. 13.8 g/dL (12.0-16.0); MEAN CORPUSCULAR HEMOGLOBIN 28.6 pg (28.0-32.0); MEAN CORPUSCULAR VOLUME 91.6 fL (81.0-99.0); MEAN PLATELET VOLUME 7.6 fl (7.4-10.4); PLATELET 253 x1000/uL (130-400); RED BLOOD CELL COUNT 4.82 mill/uL (4.2-5.4); RED CELL DISTRIBUTION WIDTH 15.9 % (11.6-14.6)
[2018-03-16 05:52] LABS: CHLORIDE 103 mEq/L (98-107)
[2018-03-16 05:59] LABS: PHOSPHORUS 2.8 mg/dL (2.5-4.9)
[2018-03-16 08:04] LABS: PLATELET ESTIMATE NORMAL
[2018-03-16] MEDS: DOCUSATE SODIUM SUGAR FREE 100MG/10ML UDC NG SCH (08:49)
[2018-03-16] MEDS: LACTOBACILLUS GG CAPSULE PO SCH (08:50)
[2018-03-16] MEDS: MICONAZOLE NITRATE 2% OINT 71GM TOP SCH ×2 (09:25→21:06)
[2018-03-16] MEDS: PANTOPRAZOLE SODIUM 40 MG/VIAL IV SCH (09:25)
[2018-03-16] MEDS: ENOXAPARIN 40MG/0.4ML SYR SUBCUT SCH (09:25)
[2018-03-16] MEDS: ATORVASTATIN CALCIUM 20MG TABLET PO SCH (21:05)
[2018-03-16] MEDS: ONDANSETRON HCL 4MG/2ML INJ IV PRN (21:05)
[2018-03-17] VITALS (97 sets, daily range): BP systolic 47–182; BP diastolic 24–110
[2018-03-17 00:20] LABS: BG BASE EXCESS 6.5 mmol/L (-2.0-2.0); BG BILEVEL POS AIRWAY PRESSURE 18/5; BG CARBOXYHEMOGLOBIN 0.6 % (0.5-1.5); BG DEOXYHEMOGLOBIN 3.4 % (0.0-5.0); BG FRACTION INSPIRED OXYGEN 100; BG HCO3 ACT 33.6 mmol/L (22.0-26.0); BG METHEMOGLOBIN 0.2 % (0.0-1.5); BG OXYGEN SATURATION 96.6 % (92.0-98.5); BG OXYHEMOGLOBIN 95.8 % (94.0-97.0); BG PH 7.373 (7.350-7.450); BG PO2 78.6 mmHg (75.0-100.0); BG SAMPLE SITE LEFT RADIAL; BG TOTAL HEMOGLOBIN 13.9 g/dL (12.0-18.0); BG VENT MODE MASK - BIPAP; BG VENT RATE 18 set
[2018-03-17] MEDS: IPRATROPIUM/ALBUTEROL 0.5-3(2.5)MG/3ML NEB HHN SCH ×4 (00:30→20:36)
[2018-03-17] MEDS: ACETYLCYSTEINE 100MG/ML 10% VIAL 4ML INH SCH ×3 (00:30→14:41)
[2018-03-17] MEDS: DEXT 5%/0.45% NACL 1000ML 1,000 ML IV SCH ×3 (01:17→21:50)
[2018-03-17 05:26] LABS: BASOPHILS % 0.7 % (0.0-2.0); EOSINOPHILS % 1.2 % (0.0-5.0); HEMATOCRIT. 44.3 % (36.0-48.0); LYMPHOCYTES % 8.2 % (20.0-50.0); MEAN CORPUSCULAR HEMOGLOBIN 29.1 pg (28.0-32.0); MEAN PLATELET VOLUME 7.8 fl (7.4-10.4); NEUTROPHILS % 76.9 % (40.0-76.0); PLATELET 208 x1000/uL (130-400); RED BLOOD CELL COUNT 4.81 mill/uL (4.2-5.4); RED CELL DISTRIBUTION WIDTH 15.9 % (11.6-14.6)
[2018-03-17 05:29] LABS: CHLORIDE 103 mEq/L (98-107)
[2018-03-17 05:37] LABS: PHOSPHORUS 2.4 mg/dL (2.5-4.9)
[2018-03-17] MEDS: DILTIAZEM HCL 30MG TABLET PO SCH ×4 (06:00→18:00)
[2018-03-17] MEDS ORDERED: FUROSEMIDE 40MG/4ML VIAL IVP NR (08:00)
[2018-03-17] MEDS: PROPOFOL 10MG/ML 100ML 100 ML IV PRN ×4 (08:33→22:40)
[2018-03-17 09:16] LABS: BG BASE EXCESS 2.4 mmol/L (-2.0-2.0); BG CARBOXYHEMOGLOBIN 0.9 % (0.5-1.5); BG DEOXYHEMOGLOBIN 7.1 % (0.0-5.0); BG HCO3 ACT 32.7 mmol/L (22.0-26.0); BG METHEMOGLOBIN 0.3 % (0.0-1.5); BG OXYGEN SATURATION 92.8 % (92.0-98.5); BG OXYHEMOGLOBIN 91.7 % (94.0-97.0); BG PCO2 79.9 mmHg (35.0-45.0); BG PO2 65.8 mmHg (75.0-100.0); BG SAMPLE SITE RIGHT RADIAL; BG TIDAL VOLUME(mL) 500 mL; BG TOTAL HEMOGLOBIN 14.7 g/dL (12.0-18.0); BG VENT MODE VENT - A/C; BG VENT RATE 14 set
[2018-03-17] MEDS: LACTOBACILLUS GG CAPSULE PO SCH ×2 (09:24→09:38)
[2018-03-17] MEDS: ENOXAPARIN 40MG/0.4ML SYR SUBCUT SCH ×2 (09:24→09:38)
[2018-03-17] MEDS: PANTOPRAZOLE SODIUM 40 MG/VIAL IV SCH ×2 (09:24→09:38)
[2018-03-17] MEDS: DOCUSATE SODIUM SUGAR FREE 100MG/10ML UDC NG SCH (09:41)
[2018-03-17] MEDS: MICONAZOLE NITRATE 2% OINT 71GM TOP SCH ×2 (09:41→21:50)
[2018-03-17] MEDS ORDERED: POTASSIUM CHLORIDE 20MEQ TABLET SR PO SCH (10:45)
[2018-03-17 12:03] LABS: BG BASE EXCESS 8.6 mmol/L (-2.0-2.0); BG CARBOXYHEMOGLOBIN 0.9 % (0.5-1.5); BG DEOXYHEMOGLOBIN 3.3 % (0.0-5.0); BG HCO3 ACT 31.7 mmol/L (22.0-26.0); BG METHEMOGLOBIN 0.3 % (0.0-1.5); BG OXYGEN SATURATION 96.7 % (92.0-98.5); BG OXYHEMOGLOBIN 95.5 % (94.0-97.0); BG PCO2 38.1 mmHg (35.0-45.0); BG PH 7.538 (7.350-7.450); BG PO2 66.3 mmHg (75.0-100.0); BG SAMPLE SITE RIGHT BRACHIAL; BG TIDAL VOLUME(mL) 500 mL; BG TOTAL HEMOGLOBIN 14.7 g/dL (12.0-18.0); BG VENT MODE VENT - A/C; BG VENT RATE 20 set
[2018-03-17] MEDS ORDERED: SUCCINYLCHOLINE CHLORIDE 200MG/10ML IV ONE (14:09)
[2018-03-17] MEDS ORDERED: ATROPINE SULFATE 1MG/10ML SYR ONE (14:09)
[2018-03-17] MEDS ORDERED: ETOMIDATE 2MG/ML 10ML VIAL IV ONE (14:09)
[2018-03-17] MEDS: DOXYCYCLINE 100 MG in DEXT 5% WATER 100 ML IV SCH (21:39)
[2018-03-17] MEDS: ATORVASTATIN CALCIUM 20MG TABLET PO SCH (21:49)
[2018-03-17] MEDS: FLUCONAZOLE 400MG/200ML BAG 200 ML IV SCH (21:51)
[2018-03-17] MEDS: NOREPINEPHRINE 8 MG in DEXT 5% WATER 242 ML IV PRN (21:52)
[2018-03-17] MEDS ORDERED: AMIKACIN 500MG in SODIUM CHLORIDE 0.9% 100ML IV NR (22:00)
[2018-03-18] VITALS (46 sets, daily range): BP systolic 80–162; BP diastolic 29–79
[2018-03-18] MEDS: ACETYLCYSTEINE 100MG/ML 10% VIAL 4ML INH SCH ×2 (02:01→13:04)
[2018-03-18] MEDS: IPRATROPIUM/ALBUTEROL 0.5-3(2.5)MG/3ML NEB HHN SCH ×4 (02:02→20:46)
[2018-03-18] MEDS: PROPOFOL 10MG/ML 100ML 100 ML IV PRN ×4 (03:53→23:13)
[2018-03-18] MEDS: DILTIAZEM HCL 30MG TABLET PO SCH ×4 (06:00→18:13)
[2018-03-18 06:14] LABS: BASOPHILS % 0.7 % (0.0-2.0); EOSINOPHILS % 2.2 % (0.0-5.0); HEMATOCRIT. 38.2 % (36.0-48.0); HEMOGLOBIN. 12.3 g/dL (12.0-16.0); LYMPHOCYTES % 11.8 % (20.0-50.0); MEAN CORPUSCULAR HEMOGLOBIN 28.8 pg (28.0-32.0); MEAN CORPUSCULAR VOLUME 89.7 fL (81.0-99.0); MONOCYTES % 8.5 % (2.0-8.0); NEUTROPHILS % 76.8 % (40.0-76.0); PLATELET 261 x1000/uL (130-400); RED BLOOD CELL COUNT 4.25 mill/uL (4.2-5.4); RED CELL DISTRIBUTION WIDTH 14.7 % (11.6-14.6)
[2018-03-18 06:27] LABS: CHLORIDE 104 mEq/L (98-107)
[2018-03-18] MEDS: DEXT 5%/0.45% NACL 1000ML 1,000 ML IV SCH ×2 (06:30→18:12)
[2018-03-18 07:11] LABS: PHOSPHORUS 0.4 mg/dL (2.5-4.9)
[2018-03-18] MEDS ORDERED: KCL 20MEQ/100ML PREMIX 100 ML IV SCH ×2 (08:30→21:00)
[2018-03-18] MEDS ORDERED: KCL 20MEQ/100ML PREMIX 100 ML IV NR (08:30)
[2018-03-18 09:17] LABS: BG BASE EXCESS 8.9 mmol/L (-2.0-2.0); BG CARBOXYHEMOGLOBIN 0.1 % (0.5-1.5); BG DEOXYHEMOGLOBIN 0.6 % (0.0-5.0); BG FRACTION INSPIRED OXYGEN 100; BG HCO3 ACT 29.8 mmol/L (22.0-26.0); BG METHEMOGLOBIN 0.2 % (0.0-1.5); BG OXYGEN SATURATION 99.4 % (92.0-98.5); BG OXYHEMOGLOBIN 99.1 % (94.0-97.0); BG PCO2 29.3 mmHg (35.0-45.0); BG PH 7.625 (7.350-7.450); BG PO2 248.6 mmHg (75.0-100.0); BG SAMPLE SITE RIGHT RADIAL; BG TIDAL VOLUME(mL) 500 mL; BG TOTAL HEMOGLOBIN 12.9 g/dL (12.0-18.0); BG VENT MODE VENT - A/C; BG VENT RATE 18 set
[2018-03-18] MEDS: DOCUSATE SODIUM SUGAR FREE 100MG/10ML UDC NG SCH (09:24)
[2018-03-18] MEDS: DOXYCYCLINE 100 MG in DEXT 5% WATER 100 ML IV SCH ×2 (09:24→21:36)
[2018-03-18] MEDS: MICONAZOLE NITRATE 2% OINT 71GM TOP SCH ×3 (09:25→21:38)
[2018-03-18] MEDS ORDERED: POTASSIUM PHOS,M-BASIC-D-BASIC 30 MMOL in DEXT 5% WATER 500 ML IV SCH (10:00)
[2018-03-18] MEDS ORDERED: AMIKACIN SULFATE 400 MG in SODIUM CHLORIDE 0.9% 100 ML IV SCH (11:00)
[2018-03-18] MEDS: AMIKACIN SULFATE 400 MG in SODIUM CHLORIDE 0.9% 100 ML IV SCH (18:13)
[2018-03-18] MEDS: ATORVASTATIN CALCIUM 20MG TABLET PO SCH (21:36)
[2018-03-18] MEDS: FLUCONAZOLE 400MG/200ML BAG 200 ML IV SCH (23:27)
[2018-03-19] VITALS (64 sets, daily range): BP systolic 84–143; BP diastolic 41–87
[2018-03-19] MEDS: IPRATROPIUM/ALBUTEROL 0.5-3(2.5)MG/3ML NEB HHN SCH ×4 (00:12→19:50)
[2018-03-19] MEDS: ACETYLCYSTEINE 100MG/ML 10% VIAL 4ML INH SCH ×3 (00:13→14:17)
[2018-03-19] MEDS: DEXT 5%/0.45% NACL 1000ML 1,000 ML IV SCH ×3 (03:09→22:10)
[2018-03-19] MEDS: NOREPINEPHRINE 8 MG in DEXT 5% WATER 242 ML IV PRN (03:11)
[2018-03-19] MEDS: PROPOFOL 10MG/ML 100ML 100 ML IV PRN ×3 (04:57→23:10)
[2018-03-19] MEDS: DILTIAZEM HCL 30MG TABLET PO SCH ×4 (06:00→17:11)
[2018-03-19 06:34] LABS: CHLORIDE 105 mEq/L (98-107)
[2018-03-19 06:35] LABS: BASOPHILS % 0.9 % (0.0-2.0); EOSINOPHILS % 2.2 % (0.0-5.0); HEMATOCRIT. 37.9 % (36.0-48.0); HEMOGLOBIN. 12.3 g/dL (12.0-16.0); LYMPHOCYTES % 12.8 % (20.0-50.0); MEAN CORPUSCULAR HEMOGLOBIN 28.7 pg (28.0-32.0); MONOCYTES % 9.9 % (2.0-8.0); NEUTROPHILS % 74.2 % (40.0-76.0); PLATELET 279 x1000/uL (130-400); RED BLOOD CELL COUNT 4.26 mill/uL (4.2-5.4); RED CELL DISTRIBUTION WIDTH 14.8 % (11.6-14.6)
[2018-03-19 08:08] LABS: BG BASE EXCESS 5.3 mmol/L (-2.0-2.0); BG CARBOXYHEMOGLOBIN 0.3 % (0.5-1.5); BG DEOXYHEMOGLOBIN 3.1 % (0.0-5.0); BG FRACTION INSPIRED OXYGEN 75; BG HCO3 ACT 31.1 mmol/L (22.0-26.0); BG METHEMOGLOBIN 0.1 % (0.0-1.5); BG OXYGEN SATURATION 96.9 % (92.0-98.5); BG OXYHEMOGLOBIN 96.5 % (94.0-97.0); BG PH 7.403 (7.350-7.450); BG PO2 91.2 mmHg (75.0-100.0); BG SAMPLE SITE RIGHT RADIAL; BG TIDAL VOLUME(mL) 500 mL; BG VENT MODE VENT - A/C; BG VENT RATE 10 set
[2018-03-19] MEDS: LACTOBACILLUS GG CAPSULE PO SCH (09:33)
[2018-03-19] MEDS: DOCUSATE SODIUM SUGAR FREE 100MG/10ML UDC NG SCH (09:33)
[2018-03-19] MEDS: ENOXAPARIN 40MG/0.4ML SYR SUBCUT SCH (09:34)
[2018-03-19] MEDS: KCL 20MEQ/100ML PREMIX 100 ML IV SCH ×2 (09:34→13:22)
[2018-03-19] MEDS: MAGNESIUM OXIDE 400MG TABLET NG SCH (09:34)
[2018-03-19] MEDS: DOXYCYCLINE 100 MG in DEXT 5% WATER 100 ML IV SCH ×2 (09:35→20:49)
[2018-03-19] MEDS: MICONAZOLE NITRATE 2% OINT 71GM TOP SCH ×2 (09:35→20:50)
[2018-03-19] MEDS: AMIKACIN SULFATE 400 MG in SODIUM CHLORIDE 0.9% 100 ML IV SCH (13:22)
[2018-03-19] MEDS: ATORVASTATIN CALCIUM 20MG TABLET PO SCH (20:49)
[2018-03-19] MEDS: FLUCONAZOLE 400MG/200ML BAG 200 ML IV SCH (22:09)
[2018-03-20] VITALS (60 sets, daily range): BP systolic 78–141; BP diastolic 40–81
[2018-03-20] MEDS: ACETAMINOPHEN 650MG/20.3ML UDC PO PRN (01:06)
[2018-03-20] MEDS: IPRATROPIUM/ALBUTEROL 0.5-3(2.5)MG/3ML NEB HHN SCH ×5 (01:57→23:47)
[2018-03-20] MEDS: ACETYLCYSTEINE 100MG/ML 10% VIAL 4ML INH SCH ×4 (01:57→23:46)
[2018-03-20] MEDS: PROPOFOL 10MG/ML 100ML 100 ML IV PRN ×4 (04:54→23:50)
[2018-03-20 05:03] LABS: BASOPHILS % 0.9 % (0.0-2.0); EOSINOPHILS % 3.5 % (0.0-5.0); HEMATOCRIT. 38.9 % (36.0-48.0); HEMOGLOBIN. 12.5 g/dL (12.0-16.0); LYMPHOCYTES % 12.6 % (20.0-50.0); MEAN CORPUSCULAR HEMOGLOBIN 28.6 pg (28.0-32.0); MEAN CORPUSCULAR VOLUME 89.4 fL (81.0-99.0); MEAN PLATELET VOLUME 8.2 fl (7.4-10.4); MONOCYTES % 7.9 % (2.0-8.0); NEUTROPHILS % 75.1 % (40.0-76.0); PLATELET 316 x1000/uL (130-400); RED BLOOD CELL COUNT 4.35 mill/uL (4.2-5.4); RED CELL DISTRIBUTION WIDTH 15.4 % (11.6-14.6)
[2018-03-20] MEDS: DILTIAZEM HCL 30MG TABLET PO SCH ×4 (05:15→18:00)
[2018-03-20] MEDS: AMIKACIN SULFATE 400 MG in SODIUM CHLORIDE 0.9% 100 ML IV SCH (05:19)
[2018-03-20 05:51] LABS: CHLORIDE 107 mEq/L (98-107)
[2018-03-20 08:36] LABS: BG BASE EXCESS 5.1 mmol/L (-2.0-2.0); BG CARBOXYHEMOGLOBIN 0.1 % (0.5-1.5); BG DEOXYHEMOGLOBIN 2.7 % (0.0-5.0); BG FRACTION INSPIRED OXYGEN 75; BG HCO3 ACT 30.2 mmol/L (22.0-26.0); BG METHEMOGLOBIN 0.3 % (0.0-1.5); BG OXYGEN SATURATION 97.3 % (92.0-98.5); BG OXYHEMOGLOBIN 96.9 % (94.0-97.0); BG PCO2 46.6 mmHg (35.0-45.0); BG PO2 97.3 mmHg (75.0-100.0); BG SAMPLE SITE RIGHT RADIAL; BG TIDAL VOLUME(mL) 500 mL; BG TOTAL HEMOGLOBIN 13.5 g/dL (12.0-18.0); BG VENT MODE VENT - A/C; BG VENT RATE 10 set
[2018-03-20 08:48] LABS: PHOSPHORUS 2.5 mg/dL (2.5-4.9)
[2018-03-20] MEDS: DOCUSATE SODIUM SUGAR FREE 100MG/10ML UDC NG SCH (09:00)
[2018-03-20] MEDS: MAGNESIUM OXIDE 400MG TABLET NG SCH (09:22)
[2018-03-20] MEDS: ENOXAPARIN 40MG/0.4ML SYR SUBCUT SCH (09:22)
[2018-03-20] MEDS: LACTOBACILLUS GG CAPSULE PO SCH (09:22)
[2018-03-20] MEDS: DEXT 5%/0.45% NACL 1000ML 1,000 ML IV SCH ×2 (09:22→18:04)
[2018-03-20] MEDS: DOXYCYCLINE 100 MG in DEXT 5% WATER 100 ML IV SCH ×2 (09:22→23:04)
[2018-03-20] MEDS: NOREPINEPHRINE 8 MG in DEXT 5% WATER 242 ML IV PRN (09:23)
[2018-03-20] MEDS: MICONAZOLE NITRATE 2% OINT 71GM TOP SCH ×2 (09:24→23:05)
[2018-03-20] MEDS ORDERED: POTASSIUM CHLORIDE 20MEQ/PACKET PO NR ×2 (09:30→14:00)
[2018-03-20] MEDS ORDERED: MAGNESIUM SULFATE 2 GM in DEXTROSE 5% WATER 50 ML IV NR (12:30)
[2018-03-20] MEDS: IPRATROPIUM/ALBUTEROL 0.5-3(2.5)MG/3ML NEB INH PRN (15:41)
[2018-03-20] MEDS: ATORVASTATIN CALCIUM 20MG TABLET PO SCH (23:04)
[2018-03-20] MEDS: FLUCONAZOLE 400MG/200ML BAG 200 ML IV SCH (23:05)
[2018-03-21] VITALS (37 sets, daily range): BP systolic 87–144; BP diastolic 50–82
[2018-03-21] MEDS: AMIKACIN SULFATE 600 MG in SODIUM CHLORIDE 0.9% 100 ML IV SCH ×2 (00:19→18:22)
[2018-03-21] MEDS: NOREPINEPHRINE 8 MG in DEXT 5% WATER 242 ML IV PRN ×2 (04:15→21:57)
[2018-03-21 05:45] LABS: BASOPHILS % 0.9 % (0.0-2.0); EOSINOPHILS % 4.2 % (0.0-5.0); HEMATOCRIT. 39.6 % (36.0-48.0); HEMOGLOBIN. 12.5 g/dL (12.0-16.0); LYMPHOCYTES % 11.2 % (20.0-50.0); MEAN CORPUSCULAR HEMOGLOBIN 28.3 pg (28.0-32.0); MEAN CORPUSCULAR VOLUME 89.5 fL (81.0-99.0); MEAN PLATELET VOLUME 8.5 fl (7.4-10.4); NEUTROPHILS % 73.7 % (40.0-76.0); PLATELET 362 x1000/uL (130-400); RED BLOOD CELL COUNT 4.43 mill/uL (4.2-5.4); RED CELL DISTRIBUTION WIDTH 15.3 % (11.6-14.6)
[2018-03-21] MEDS: PROPOFOL 10MG/ML 100ML 100 ML IV PRN ×3 (05:51→19:39)
[2018-03-21] MEDS: DEXT 5%/0.45% NACL 1000ML 1,000 ML IV SCH ×2 (05:52→14:50)
[2018-03-21 05:54] LABS: CHLORIDE 109 mEq/L (98-107)
[2018-03-21 06:00] LABS: PHOSPHORUS 1.9 mg/dL (2.5-4.9)
[2018-03-21] MEDS: DILTIAZEM HCL 30MG TABLET PO SCH ×4 (06:00→18:00)
[2018-03-21 08:00] LABS: BG BASE EXCESS 3.1 mmol/L (-2.0-2.0); BG CARBOXYHEMOGLOBIN 0.5 % (0.5-1.5); BG DEOXYHEMOGLOBIN 1.7 % (0.0-5.0); BG FRACTION INSPIRED OXYGEN 75; BG HCO3 ACT 29.5 mmol/L (22.0-26.0); BG METHEMOGLOBIN 0.3 % (0.0-1.5); BG OXYGEN SATURATION 98.3 % (92.0-98.5); BG OXYHEMOGLOBIN 97.5 % (94.0-97.0); BG PCO2 52.9 mmHg (35.0-45.0); BG PH 7.364 (7.350-7.450); BG PO2 128.1 mmHg (75.0-100.0); BG SAMPLE SITE LEFT RADIAL; BG TIDAL VOLUME(mL) 500 mL; BG TOTAL HEMOGLOBIN 12.7 g/dL (12.0-18.0); BG VENT MODE VENT - A/C; BG VENT RATE 10 set
[2018-03-21] MEDS ORDERED: SODIUM PHOS,M-BASIC-D-BASIC 15 MM in DEXT 5% WATER 245 ML IV NR (08:00)
[2018-03-21] MEDS: ACETYLCYSTEINE 100MG/ML 10% VIAL 4ML INH SCH ×2 (08:03→14:30)
[2018-03-21] MEDS: IPRATROPIUM/ALBUTEROL 0.5-3(2.5)MG/3ML NEB HHN SCH ×3 (08:04→20:08)
[2018-03-21] MEDS ORDERED: PROPOFOL 10MG/ML 100ML 100 ML IV PRN (09:41)
[2018-03-21] MEDS: MICONAZOLE NITRATE 2% OINT 71GM TOP SCH ×2 (10:23→22:29)
[2018-03-21] MEDS: LACTOBACILLUS GG CAPSULE PO SCH (10:23)
[2018-03-21] MEDS: MAGNESIUM OXIDE 400MG TABLET NG SCH (10:23)
[2018-03-21] MEDS: DOXYCYCLINE 100 MG in DEXT 5% WATER 100 ML IV SCH ×2 (10:23→22:28)
[2018-03-21] MEDS: ENOXAPARIN 40MG/0.4ML SYR SUBCUT SCH (10:23)
[2018-03-21] MEDS: ATORVASTATIN CALCIUM 20MG TABLET PO SCH (22:28)
[2018-03-21] MEDS: FLUCONAZOLE 400MG/200ML BAG 200 ML IV SCH (22:30)
[2018-03-22] VITALS (88 sets, daily range): BP systolic 75–140; BP diastolic 38–90
[2018-03-22] MEDS: IPRATROPIUM/ALBUTEROL 0.5-3(2.5)MG/3ML NEB HHN SCH ×4 (00:22→20:37)
[2018-03-22] MEDS: ACETYLCYSTEINE 100MG/ML 10% VIAL 4ML INH SCH ×3 (00:22→13:38)
[2018-03-22] MEDS: DILTIAZEM HCL 30MG TABLET PO SCH ×5 (00:30→23:25)
[2018-03-22] MEDS: DEXT 5%/0.45% NACL 1000ML 1,000 ML IV SCH ×3 (00:31→21:17)
[2018-03-22] MEDS: PROPOFOL 10MG/ML 100ML 100 ML IV PRN ×2 (02:02→09:08)
[2018-03-22] MEDS: IPRATROPIUM/ALBUTEROL 0.5-3(2.5)MG/3ML NEB INH PRN (04:38)
[2018-03-22 05:54] LABS: BASOPHILS % 1.1 % (0.0-2.0); HEMATOCRIT. 36.8 % (36.0-48.0); LYMPHOCYTES % 16.2 % (20.0-50.0); MEAN CORPUSCULAR HEMOGLOBIN 28.8 pg (28.0-32.0); MEAN CORPUSCULAR VOLUME 88.5 fL (81.0-99.0); MEAN PLATELET VOLUME 8.3 fl (7.4-10.4); MONOCYTES % 13.6 % (2.0-8.0); NEUTROPHILS % 64.1 % (40.0-76.0); PLATELET 387 x1000/uL (130-400); RED BLOOD CELL COUNT 4.16 mill/uL (4.2-5.4)
[2018-03-22 06:00] LABS: CHLORIDE 109 mEq/L (98-107)
[2018-03-22 07:19] LABS: BG BASE EXCESS 4.1 mmol/L (-2.0-2.0); BG CARBOXYHEMOGLOBIN 0.4 % (0.5-1.5); BG DEOXYHEMOGLOBIN 4.8 % (0.0-5.0); BG HCO3 ACT 28.2 mmol/L (22.0-26.0); BG METHEMOGLOBIN 0.4 % (0.0-1.5); BG OXYGEN SATURATION 95.2 % (92.0-98.5); BG OXYHEMOGLOBIN 94.4 % (94.0-97.0); BG PCO2 40.6 mmHg (35.0-45.0); BG PO2 75.6 mmHg (75.0-100.0); BG SAMPLE SITE RIGHT BRACHIAL; BG TIDAL VOLUME(mL) 500 mL; BG TOTAL HEMOGLOBIN 12.2 g/dL (12.0-18.0); BG VENT MODE VENT - A/C; BG VENT RATE 15 set
[2018-03-22] MEDS: ENOXAPARIN 40MG/0.4ML SYR SUBCUT SCH (08:11)
[2018-03-22] MEDS: LACTOBACILLUS GG CAPSULE PO SCH (08:11)
[2018-03-22] MEDS: DOXYCYCLINE 100 MG in DEXT 5% WATER 100 ML IV SCH ×2 (08:12→21:17)
[2018-03-22] MEDS: MAGNESIUM OXIDE 400MG TABLET NG SCH (08:14)
[2018-03-22] MEDS: MICONAZOLE NITRATE 2% OINT 71GM TOP SCH ×2 (08:15→21:18)
[2018-03-22] MEDS ORDERED: POTASSIUM CHLORIDE INJ 40 MEQ in DEXT 5% WATER 250 ML IV NR (09:00)
[2018-03-22 09:03] LABS: PHOSPHORUS 2.4 mg/dL (2.5-4.9)
[2018-03-22] MEDS ORDERED: POTASSIUM CHLORIDE 20MEQ TABLET SR PO NR (10:00)
[2018-03-22] MEDS ORDERED: PROPOFOL 10MG/ML 100ML 100 ML IV PRN ×2 (10:03→14:00)
[2018-03-22] MEDS: AMIKACIN SULFATE 600 MG in SODIUM CHLORIDE 0.9% 100 ML IV SCH (12:16)
[2018-03-22] MEDS: PANTOPRAZOLE SODIUM 40 MG/VIAL IV SCH (12:16)
[2018-03-22] MEDS ORDERED: POTASSIUM PHOS,M-BASIC-D-BASIC 20 MMOL in DEXT 5% WATER 243.3333 ML IV NR (12:30)
[2018-03-22 14:00] LABS: CHLORIDE 108 mEq/L (98-107)
[2018-03-22] MEDS: MORPHINE SULFATE 4 MG/ML CPJ (NOT FOR IM USE) IV PRN (15:44)
[2018-03-22 19:09] LABS: CHLORIDE 108 mEq/L (98-107)
[2018-03-22] MEDS: ATORVASTATIN CALCIUM 20MG TABLET PO SCH (21:17)
[2018-03-22] MEDS: LORAZEPAM 2MG/ML CPJ IV PRN (21:18)
[2018-03-22] MEDS: NOREPINEPHRINE 8 MG in DEXT 5% WATER 242 ML IV PRN (22:23)
[2018-03-22] MEDS: FLUCONAZOLE 400MG/200ML BAG 200 ML IV SCH (22:23)
[2018-03-23] VITALS (84 sets, daily range): BP systolic 75–154; BP diastolic 41–84
[2018-03-23] MEDS: IPRATROPIUM/ALBUTEROL 0.5-3(2.5)MG/3ML NEB HHN SCH ×4 (02:08→20:10)
[2018-03-23] MEDS: ACETYLCYSTEINE 100MG/ML 10% VIAL 4ML INH SCH ×3 (02:08→13:21)
[2018-03-23] MEDS: LORAZEPAM 2MG/ML CPJ IV PRN ×2 (03:37→08:00)
[2018-03-23] MEDS: DILTIAZEM HCL 30MG TABLET PO SCH (05:22)
[2018-03-23] MEDS: AMIKACIN SULFATE 600 MG in SODIUM CHLORIDE 0.9% 100 ML IV SCH (05:32)
[2018-03-23] MEDS: DEXT 5%/0.45% NACL 1000ML 1,000 ML IV SCH ×2 (05:33→12:03)
[2018-03-23 06:01] LABS: BASOPHILS % 1.3 % (0.0-2.0); EOSINOPHILS % 6.3 % (0.0-5.0); HEMOGLOBIN. 11.7 g/dL (12.0-16.0); MEAN CORPUSCULAR HEMOGLOBIN 28.6 pg (28.0-32.0); MEAN CORPUSCULAR VOLUME 89.9 fL (81.0-99.0); MEAN PLATELET VOLUME 8.9 fl (7.4-10.4); MONOCYTES % 12.2 % (2.0-8.0); NEUTROPHILS % 64.2 % (40.0-76.0); PLATELET 343 x1000/uL (130-400); RED BLOOD CELL COUNT 4.11 mill/uL (4.2-5.4); RED CELL DISTRIBUTION WIDTH 15.2 % (11.6-14.6)
[2018-03-23 06:03] LABS: PHOSPHORUS 3.7 mg/dL (2.5-4.9)
[2018-03-23 07:16] LABS: BG BASE EXCESS 2.6 mmol/L (-2.0-2.0); BG CARBOXYHEMOGLOBIN 0.4 % (0.5-1.5); BG DEOXYHEMOGLOBIN 5.9 % (0.0-5.0); BG HCO3 ACT 27.5 mmol/L (22.0-26.0); BG METHEMOGLOBIN 0.2 % (0.0-1.5); BG OXYGEN SATURATION 94.1 % (92.0-98.5); BG OXYHEMOGLOBIN 93.5 % (94.0-97.0); BG PCO2 43.2 mmHg (35.0-45.0); BG PH 7.421 (7.350-7.450); BG PO2 72.4 mmHg (75.0-100.0); BG SAMPLE SITE RIGHT BRACHIAL; BG TIDAL VOLUME(mL) 500 mL; BG TOTAL HEMOGLOBIN 12.8 g/dL (12.0-18.0); BG VENT MODE VENT - A/C; BG VENT RATE 12 set
[2018-03-23] MEDS: ENOXAPARIN 40MG/0.4ML SYR SUBCUT SCH (07:58)
[2018-03-23] MEDS: DOXYCYCLINE 100 MG in DEXT 5% WATER 100 ML IV SCH ×2 (07:59→20:25)
[2018-03-23] MEDS: MICONAZOLE NITRATE 2% OINT 71GM TOP SCH ×2 (07:59→20:25)
[2018-03-23] MEDS: MAGNESIUM OXIDE 400MG TABLET NG SCH (07:59)
[2018-03-23] MEDS: PANTOPRAZOLE SODIUM 40 MG/VIAL IV SCH (07:59)
[2018-03-23] MEDS: LACTOBACILLUS GG CAPSULE PO SCH (07:59)
[2018-03-23] MEDS: MORPHINE SULFATE 4 MG/ML CPJ (NOT FOR IM USE) IV PRN (09:26)
[2018-03-23] MEDS ORDERED: LORAZEPAM 2MG/ML CPJ IV PRN (10:00)
[2018-03-23 11:01] LABS: CHLORIDE 106 mEq/L (98-107)
[2018-03-23 11:06] LABS: PHOSPHORUS 3.3 mg/dL (2.5-4.9)
[2018-03-23] MEDS: MIDODRINE HCL 5MG TABLET PO SCH ×3 (11:18→18:05)
[2018-03-23] MEDS ORDERED: POTASSIUM CHLORIDE INJ 40 MEQ in DEXT 5% WATER 250 ML IV NR (17:00)
[2018-03-23] MEDS: ATORVASTATIN CALCIUM 20MG TABLET PO SCH (20:25)
[2018-03-23] MEDS: FLUCONAZOLE 400MG/200ML BAG 200 ML IV SCH (22:03)
[2018-03-24] VITALS (51 sets, daily range): BP systolic 88–152; BP diastolic 26–126
[2018-03-24] MEDS: AMIKACIN SULFATE 600 MG in SODIUM CHLORIDE 0.9% 100 ML IV SCH (00:31)
[2018-03-24] MEDS: DEXT 5%/0.45% NACL 1000ML 1,000 ML IV SCH ×3 (01:51→21:45)
[2018-03-24] MEDS: IPRATROPIUM/ALBUTEROL 0.5-3(2.5)MG/3ML NEB HHN SCH ×4 (02:13→20:47)
[2018-03-24 05:50] LABS: BASOPHILS % 0.9 % (0.0-2.0); EOSINOPHILS % 5.8 % (0.0-5.0); HEMATOCRIT. 35.3 % (36.0-48.0); HEMOGLOBIN. 11.4 g/dL (12.0-16.0); MEAN CORPUSCULAR HEMOGLOBIN 28.7 pg (28.0-32.0); MEAN CORPUSCULAR VOLUME 88.9 fL (81.0-99.0); MEAN PLATELET VOLUME 8.5 fl (7.4-10.4); MONOCYTES % 13.4 % (2.0-8.0); NEUTROPHILS % 65.9 % (40.0-76.0); PLATELET 391 x1000/uL (130-400); RED BLOOD CELL COUNT 3.97 mill/uL (4.2-5.4); RED CELL DISTRIBUTION WIDTH 14.9 % (11.6-14.6)
[2018-03-24 05:53] LABS: CHLORIDE 107 mEq/L (98-107)
[2018-03-24 06:14] LABS: PHOSPHORUS 2.8 mg/dL (2.5-4.9)
[2018-03-24] MEDS: ENOXAPARIN 40MG/0.4ML SYR SUBCUT SCH (09:00)
[2018-03-24] MEDS: MICONAZOLE NITRATE 2% OINT 71GM TOP SCH ×2 (09:00→20:46)
[2018-03-24] MEDS: LACTOBACILLUS GG CAPSULE PO SCH (09:58)
[2018-03-24] MEDS: MAGNESIUM OXIDE 400MG TABLET NG SCH (09:58)
[2018-03-24] MEDS: MIDODRINE HCL 5MG TABLET PO SCH ×3 (10:00→16:49)
[2018-03-24] MEDS: PANTOPRAZOLE SODIUM 40 MG/VIAL IV SCH (10:01)
[2018-03-24] MEDS: MORPHINE SULFATE 4 MG/ML CPJ (NOT FOR IM USE) IV PRN ×2 (12:27→16:49)
[2018-03-24 13:21] LABS: BG BASE EXCESS 3.6 mmol/L (-2.0-2.0); BG CARBOXYHEMOGLOBIN 0.3 % (0.5-1.5); BG FRACTION INSPIRED OXYGEN 75; BG HCO3 ACT 29.3 mmol/L (22.0-26.0); BG METHEMOGLOBIN 0.2 % (0.0-1.5); BG OXYHEMOGLOBIN 95.5 % (94.0-97.0); BG PH 7.394 (7.350-7.450); BG SAMPLE SITE RIGHT RADIAL; BG TIDAL VOLUME(mL) 500 mL; BG TOTAL HEMOGLOBIN 11.8 g/dL (12.0-18.0); BG VENT MODE VENT - A/C; BG VENT RATE 10 set
[2018-03-24] MEDS: LORAZEPAM 2MG/ML CPJ IV PRN ×2 (15:13→20:46)
[2018-03-24] MEDS: ATORVASTATIN CALCIUM 20MG TABLET PO SCH (20:46)
[2018-03-24] MEDS: FLUCONAZOLE 400MG/200ML BAG 200 ML IV SCH (21:45)
[2018-03-25] VITALS (38 sets, daily range): BP systolic 69–158; BP diastolic 39–96
[2018-03-25] MEDS: IPRATROPIUM/ALBUTEROL 0.5-3(2.5)MG/3ML NEB HHN SCH ×4 (01:58→20:15)
[2018-03-25] MEDS: MORPHINE SULFATE 4 MG/ML CPJ (NOT FOR IM USE) IV PRN ×3 (03:29→18:55)
[2018-03-25 05:44] LABS: BASOPHILS % 1.1 % (0.0-2.0); EOSINOPHILS % 5.8 % (0.0-5.0); HEMATOCRIT. 35.2 % (36.0-48.0); HEMOGLOBIN. 11.2 g/dL (12.0-16.0); LYMPHOCYTES % 13.9 % (20.0-50.0); MEAN CORPUSCULAR HEMOGLOBIN 28.7 pg (28.0-32.0); MEAN CORPUSCULAR VOLUME 90.1 fL (81.0-99.0); MEAN PLATELET VOLUME 8.6 fl (7.4-10.4); MONOCYTES % 12.2 % (2.0-8.0); PLATELET 341 x1000/uL (130-400); RED CELL DISTRIBUTION WIDTH 14.9 % (11.6-14.6)
[2018-03-25 06:05] LABS: CHLORIDE 104 mEq/L (98-107)
[2018-03-25] MEDS: ENOXAPARIN 40MG/0.4ML SYR SUBCUT SCH (09:00)
[2018-03-25] MEDS: LACTOBACILLUS GG CAPSULE PO SCH (09:57)
[2018-03-25] MEDS: PANTOPRAZOLE SODIUM 40 MG/VIAL IV SCH (09:57)
[2018-03-25] MEDS: DEXT 5%/0.45% NACL 1000ML 1,000 ML IV SCH ×2 (09:58→18:55)
[2018-03-25] MEDS: MIDODRINE HCL 5MG TABLET PO SCH ×3 (09:58→18:55)
[2018-03-25] MEDS: MAGNESIUM OXIDE 400MG TABLET NG SCH (09:58)
[2018-03-25] MEDS: MICONAZOLE NITRATE 2% OINT 71GM TOP SCH ×2 (09:59→21:53)
[2018-03-25] MEDS: LORAZEPAM 2MG/ML CPJ IV PRN ×3 (10:14→23:22)
[2018-03-25 14:55] LABS: BG BASE EXCESS 5.4 mmol/L (-2.0-2.0); BG CARBOXYHEMOGLOBIN 0.4 % (0.5-1.5); BG DEOXYHEMOGLOBIN 5.4 % (0.0-5.0); BG HCO3 ACT 31.9 mmol/L (22.0-26.0); BG METHEMOGLOBIN 0.3 % (0.0-1.5); BG OXYGEN SATURATION 94.6 % (92.0-98.5); BG OXYHEMOGLOBIN 93.9 % (94.0-97.0); BG PCO2 54.6 mmHg (35.0-45.0); BG PH 7.384 (7.350-7.450); BG PO2 74.8 mmHg (75.0-100.0); BG SAMPLE SITE RIGHT RADIAL; BG TIDAL VOLUME(mL) 500 mL; BG TOTAL HEMOGLOBIN 13.1 g/dL (12.0-18.0); BG VENT MODE VENT - A/C; BG VENT RATE 12 set
[2018-03-25] MEDS: METRONIDAZOLE 500MG TABLET PO SCH ×2 (15:44→21:52)
[2018-03-25] MEDS: ATORVASTATIN CALCIUM 20MG TABLET PO SCH (21:52)
[2018-03-25] MEDS: NOREPINEPHRINE 8 MG in DEXT 5% WATER 242 ML IV PRN (23:22)
[2018-03-26] VITALS (56 sets, daily range): BP systolic 78–173; BP diastolic 43–84
[2018-03-26] MEDS: IPRATROPIUM/ALBUTEROL 0.5-3(2.5)MG/3ML NEB HHN SCH ×4 (01:30→20:25)
[2018-03-26] MEDS: METRONIDAZOLE 500MG TABLET PO SCH ×3 (03:20→18:48)
[2018-03-26] MEDS: DEXT 5%/0.45% NACL 1000ML 1,000 ML IV SCH (04:33)
[2018-03-26 05:43] LABS: BASOPHILS % 0.7 % (0.0-2.0); EOSINOPHILS % 6.6 % (0.0-5.0); HEMATOCRIT. 36.6 % (36.0-48.0); HEMOGLOBIN. 11.6 g/dL (12.0-16.0); LYMPHOCYTES % 17.1 % (20.0-50.0); MEAN CORPUSCULAR HEMOGLOBIN 28.4 pg (28.0-32.0); MEAN CORPUSCULAR VOLUME 89.5 fL (81.0-99.0); MEAN PLATELET VOLUME 8.2 fl (7.4-10.4); MONOCYTES % 13.9 % (2.0-8.0); NEUTROPHILS % 61.7 % (40.0-76.0); PLATELET 411 x1000/uL (130-400); RED BLOOD CELL COUNT 4.09 mill/uL (4.2-5.4); RED CELL DISTRIBUTION WIDTH 14.9 % (11.6-14.6)
[2018-03-26 05:54] LABS: CHLORIDE 106 mEq/L (98-107)
[2018-03-26] MEDS: LORAZEPAM 2MG/ML CPJ IV PRN ×3 (07:00→18:50)
[2018-03-26] MEDS: MORPHINE SULFATE 4 MG/ML CPJ (NOT FOR IM USE) IV PRN ×3 (07:01→18:50)
[2018-03-26] MEDS: ENOXAPARIN 40MG/0.4ML SYR SUBCUT SCH (09:00)
[2018-03-26] MEDS: LACTOBACILLUS GG CAPSULE PO SCH (09:19)
[2018-03-26] MEDS: PANTOPRAZOLE SODIUM 40 MG/VIAL IV SCH (09:20)
[2018-03-26] MEDS: MAGNESIUM OXIDE 400MG TABLET NG SCH (09:20)
[2018-03-26] MEDS: MIDODRINE HCL 5MG TABLET PO SCH ×3 (09:20→18:49)
[2018-03-26] MEDS: MICONAZOLE NITRATE 2% OINT 71GM TOP SCH ×2 (09:20→21:15)
[2018-03-26] MEDS ORDERED: POTASSIUM CHLORIDE 20MEQ TABLET SR PO NR (10:45)
[2018-03-26 13:06] LABS: BG BASE EXCESS 4.5 mmol/L (-2.0-2.0); BG CARBOXYHEMOGLOBIN 0.2 % (0.5-1.5); BG DEOXYHEMOGLOBIN 8.9 % (0.0-5.0); BG METHEMOGLOBIN 0.1 % (0.0-1.5); BG OXYGEN SATURATION 91.1 % (92.0-98.5); BG OXYHEMOGLOBIN 90.8 % (94.0-97.0); BG PCO2 55.7 mmHg (35.0-45.0); BG PH 7.364 (7.350-7.450); BG PO2 64.8 mmHg (75.0-100.0); BG SAMPLE SITE RIGHT RADIAL; BG TIDAL VOLUME(mL) 500 mL; BG VENT MODE VENT - A/C; BG VENT RATE 12 set
[2018-03-26] MEDS: ATORVASTATIN CALCIUM 20MG TABLET PO SCH (21:15)
[2018-03-27] VITALS (38 sets, daily range): BP systolic 97–174; BP diastolic 30–136
[2018-03-27] MEDS: LORAZEPAM 2MG/ML CPJ IV PRN ×4 (00:40→20:40)
[2018-03-27] MEDS: IPRATROPIUM/ALBUTEROL 0.5-3(2.5)MG/3ML NEB HHN SCH ×4 (01:45→20:11)
[2018-03-27] MEDS: METRONIDAZOLE 500MG TABLET PO SCH ×3 (02:34→20:43)
[2018-03-27 06:42] LABS: BASOPHILS % 1.1 % (0.0-2.0); CHLORIDE 104 mEq/L (98-107); EOSINOPHILS % 4.4 % (0.0-5.0); HEMATOCRIT. 36.4 % (36.0-48.0); HEMOGLOBIN. 11.7 g/dL (12.0-16.0); LYMPHOCYTES % 11.6 % (20.0-50.0); MEAN CORPUSCULAR HEMOGLOBIN 28.6 pg (28.0-32.0); MEAN CORPUSCULAR VOLUME 89.2 fL (81.0-99.0); MEAN PLATELET VOLUME 8.5 fl (7.4-10.4); MONOCYTES % 10.3 % (2.0-8.0); NEUTROPHILS % 72.6 % (40.0-76.0); PLATELET 435 x1000/uL (130-400); RED BLOOD CELL COUNT 4.09 mill/uL (4.2-5.4); RED CELL DISTRIBUTION WIDTH 14.5 % (11.6-14.6)
[2018-03-27 07:55] LABS: BG BASE EXCESS 6.9 mmol/L (-2.0-2.0); BG CARBOXYHEMOGLOBIN 0.2 % (0.5-1.5); BG FRACTION INSPIRED OXYGEN 65; BG HCO3 ACT 32.7 mmol/L (22.0-26.0); BG METHEMOGLOBIN 0.4 % (0.0-1.5); BG OXYHEMOGLOBIN 94.4 % (94.0-97.0); BG PCO2 51.4 mmHg (35.0-45.0); BG PH 7.421 (7.350-7.450); BG PO2 77.2 mmHg (75.0-100.0); BG SAMPLE SITE RIGHT BRACHIAL; BG TIDAL VOLUME(mL) 500 mL; BG TOTAL HEMOGLOBIN 13.3 g/dL (12.0-18.0); BG VENT MODE VENT - A/C; BG VENT RATE 12 set
[2018-03-27] MEDS: ENOXAPARIN 40MG/0.4ML SYR SUBCUT SCH (09:00)
[2018-03-27] MEDS: MAGNESIUM OXIDE 400MG TABLET NG SCH (09:30)
[2018-03-27] MEDS: LACTOBACILLUS GG CAPSULE PO SCH (09:31)
[2018-03-27] MEDS: MIDODRINE HCL 5MG TABLET PO SCH ×3 (09:32→18:14)
[2018-03-27] MEDS: MORPHINE SULFATE 4 MG/ML CPJ (NOT FOR IM USE) IV PRN ×2 (09:33→12:59)
[2018-03-27] MEDS: MICONAZOLE NITRATE 2% OINT 71GM TOP SCH (09:33)
[2018-03-27] MEDS: PANTOPRAZOLE SODIUM 40 MG/VIAL IV SCH (09:33)
[2018-03-27] MEDS: NYSTATIN POWDER 15GM TOP SCH (18:14)
[2018-03-27] MEDS: ATORVASTATIN CALCIUM 20MG TABLET PO SCH (20:40)
[2018-03-28] VITALS (17 sets, daily range): BP systolic 82–126; BP diastolic 47–86
[2018-03-28] MEDS: IPRATROPIUM/ALBUTEROL 0.5-3(2.5)MG/3ML NEB HHN SCH ×5 (01:34→20:27)
[2018-03-28] MEDS: METRONIDAZOLE 500MG TABLET PO SCH ×3 (02:00→23:06)
[2018-03-28] MEDS: LORAZEPAM 2MG/ML CPJ IV PRN ×3 (02:00→21:25)
[2018-03-28 05:43] LABS: CHLORIDE 102 mEq/L (98-107)
[2018-03-28] MEDS: MORPHINE SULFATE 4 MG/ML CPJ (NOT FOR IM USE) IV PRN ×2 (05:49→16:05)
[2018-03-28 05:54] LABS: BASOPHILS % 0.9 % (0.0-2.0); EOSINOPHILS % 5.5 % (0.0-5.0); HEMATOCRIT. 36.5 % (36.0-48.0); HEMOGLOBIN. 11.8 g/dL (12.0-16.0); LYMPHOCYTES % 11.8 % (20.0-50.0); MEAN CORPUSCULAR HEMOGLOBIN 28.6 pg (28.0-32.0); MEAN CORPUSCULAR VOLUME 88.6 fL (81.0-99.0); MEAN PLATELET VOLUME 8.5 fl (7.4-10.4); MONOCYTES % 10.7 % (2.0-8.0); NEUTROPHILS % 71.1 % (40.0-76.0); PLATELET 461 x1000/uL (130-400); RED BLOOD CELL COUNT 4.13 mill/uL (4.2-5.4); RED CELL DISTRIBUTION WIDTH 14.5 % (11.6-14.6)
[2018-03-28 08:02] LABS: BG BASE EXCESS 5.4 mmol/L (-2.0-2.0); BG CARBOXYHEMOGLOBIN 0.5 % (0.5-1.5); BG DEOXYHEMOGLOBIN 4.9 % (0.0-5.0); BG HCO3 ACT 31.2 mmol/L (22.0-26.0); BG METHEMOGLOBIN 0.4 % (0.0-1.5); BG OXYGEN SATURATION 95.1 % (92.0-98.5); BG OXYHEMOGLOBIN 94.2 % (94.0-97.0); BG PCO2 51.1 mmHg (35.0-45.0); BG PH 7.404 (7.350-7.450); BG PO2 79.4 mmHg (75.0-100.0); BG SAMPLE SITE RIGHT BRACHIAL; BG TIDAL VOLUME(mL) 500 mL; BG TOTAL HEMOGLOBIN 12.5 g/dL (12.0-18.0); BG VENT MODE VENT - A/C; BG VENT RATE 12 set
[2018-03-28] MEDS ORDERED: ROCURONIUM BROMIDE 10MG/ML VIAL 5ML IV ONE (08:59)
[2018-03-28] MEDS: ENOXAPARIN 40MG/0.4ML SYR SUBCUT SCH (09:00)
[2018-03-28] MEDS: LACTOBACILLUS GG CAPSULE PO SCH (09:00)
[2018-03-28] MEDS ORDERED: POTASSIUM CHLORIDE INJ 40 MEQ in DEXT 5% WATER 250 ML IV NR (10:00)
[2018-03-28 10:41] LABS: INR 1.2; PARTIAL THROMBOPLASTIN TIME 29.3 sec (23.4-31.0); PROTHROMBIN TIME 12.5 sec (9.1-11.1)
[2018-03-28] MEDS: MAGNESIUM OXIDE 400MG TABLET NG SCH (10:44)
[2018-03-28] MEDS: MIDODRINE HCL 5MG TABLET PO SCH ×3 (10:45→17:45)
[2018-03-28] MEDS: PANTOPRAZOLE SODIUM 40 MG/VIAL IV SCH ×2 (10:46→23:06)
[2018-03-28] MEDS: NYSTATIN POWDER 15GM TOP SCH ×2 (10:47→17:18)
[2018-03-28] MEDS ORDERED: POTASSIUM CHLORIDE 20MEQ TABLET SR PO SCH (12:30)
[2018-03-28] MEDS: ATORVASTATIN CALCIUM 20MG TABLET PO SCH (23:06)
[2018-03-29] VITALS (15 sets, daily range): BP systolic 80–146; BP diastolic 46–76
[2018-03-29] MEDS: LORAZEPAM 2MG/ML CPJ IV PRN ×5 (01:48→20:22)
[2018-03-29] MEDS: IPRATROPIUM/ALBUTEROL 0.5-3(2.5)MG/3ML NEB HHN SCH ×5 (02:48→21:12)
[2018-03-29] MEDS: METRONIDAZOLE 500MG TABLET PO SCH ×3 (06:05→20:37)
[2018-03-29 07:42] LABS: EOSINOPHILS % 3.6 % (0.0-5.0); HEMATOCRIT. 35.7 % (36.0-48.0); HEMOGLOBIN. 11.5 g/dL (12.0-16.0); LYMPHOCYTES % 12.1 % (20.0-50.0); MEAN CORPUSCULAR HEMOGLOBIN 28.5 pg (28.0-32.0); MEAN CORPUSCULAR VOLUME 88.7 fL (81.0-99.0); MEAN PLATELET VOLUME 8.1 fl (7.4-10.4); MONOCYTES % 11.5 % (2.0-8.0); NEUTROPHILS % 71.8 % (40.0-76.0); PLATELET 457 x1000/uL (130-400); RED BLOOD CELL COUNT 4.02 mill/uL (4.2-5.4); RED CELL DISTRIBUTION WIDTH 14.4 % (11.6-14.6)
[2018-03-29 08:00] LABS: INR 1.3; PARTIAL THROMBOPLASTIN TIME 28.5 sec (23.4-31.0); PROTHROMBIN TIME 12.6 sec (9.1-11.1)
[2018-03-29] MEDS: ACETAMINOPHEN 650MG/20.3ML UDC PO PRN ×2 (08:48→14:59)
[2018-03-29] MEDS: MAGNESIUM OXIDE 400MG TABLET NG SCH (08:48)
[2018-03-29] MEDS: PANTOPRAZOLE SODIUM 40 MG/VIAL IV SCH ×2 (08:48→21:57)
[2018-03-29] MEDS: MIDODRINE HCL 5MG TABLET PO SCH ×3 (08:48→16:58)
[2018-03-29] MEDS: LACTOBACILLUS GG CAPSULE PO SCH (08:49)
[2018-03-29] MEDS: LOPERAMIDE HCL 2MG CAPSULE PO PRN ×2 (08:56→14:59)
[2018-03-29] MEDS: ENOXAPARIN 40MG/0.4ML SYR SUBCUT SCH (09:00)
[2018-03-29] MEDS: NYSTATIN POWDER 15GM TOP SCH ×2 (09:02→16:58)
[2018-03-29 09:18] LABS: CHLORIDE 103 mEq/L (98-107)
[2018-03-29 09:45] LABS: PHOSPHORUS 2.4 mg/dL (2.5-4.9)
[2018-03-29] MEDS ORDERED: POTASSIUM CHLORIDE 20MEQ TABLET SR PO NR (13:00)
[2018-03-29] MEDS ORDERED: POTASSIUM PHOS,M-BASIC-D-BASIC 20 MMOL in DEXT 5% WATER 243.3333 ML IV NR (13:00)
[2018-03-29] MEDS ORDERED: LORAZEPAM 2MG/ML CPJ IV PRN (15:30)
[2018-03-29] MEDS: ATORVASTATIN CALCIUM 20MG TABLET PO SCH (21:58)
[2018-03-30] VITALS (9 sets, daily range): BP systolic 95–140; BP diastolic 49–84
[2018-03-30] MEDS: LORAZEPAM 2MG/ML CPJ IV PRN ×3 (00:45→16:23)
[2018-03-30] MEDS: IPRATROPIUM/ALBUTEROL 0.5-3(2.5)MG/3ML NEB HHN SCH ×3 (01:55→20:11)
[2018-03-30] MEDS: MORPHINE SULFATE 4 MG/ML CPJ (NOT FOR IM USE) IV PRN (03:35)
[2018-03-30] MEDS: METRONIDAZOLE 500MG TABLET PO SCH ×3 (04:42→18:09)
[2018-03-30 06:46] LABS: CHLORIDE 103 mEq/L (98-107)
[2018-03-30 06:47] LABS: BASOPHILS % 0.9 % (0.0-2.0); EOSINOPHILS % 5.3 % (0.0-5.0); HEMATOCRIT. 35.7 % (36.0-48.0); HEMOGLOBIN. 11.6 g/dL (12.0-16.0); LYMPHOCYTES % 11.9 % (20.0-50.0); MEAN CORPUSCULAR HEMOGLOBIN 28.7 pg (28.0-32.0); MEAN CORPUSCULAR VOLUME 88.4 fL (81.0-99.0); MEAN PLATELET VOLUME 8.4 fl (7.4-10.4); MONOCYTES % 9.7 % (2.0-8.0); NEUTROPHILS % 72.2 % (40.0-76.0); PLATELET 429 x1000/uL (130-400); RED BLOOD CELL COUNT 4.04 mill/uL (4.2-5.4); RED CELL DISTRIBUTION WIDTH 14.4 % (11.6-14.6)
[2018-03-30 06:49] LABS: PHOSPHORUS 3.2 mg/dL (2.5-4.9)
[2018-03-30] MEDS ORDERED: LEVOFLOXACIN 500MG PREMIX 100 ML IV NR (08:00)
[2018-03-30] MEDS ORDERED: DIPHENHYDRAMINE 50MG/ML VIAL ONE (08:01)
[2018-03-30] MEDS ORDERED: FENTANYL CITRATE/PF 50MCG/ML 2ML VIAL ONE (08:02)
[2018-03-30] MEDS ORDERED: MIDAZOLAM HCL 5 MG/5 ML VIAL ONE (08:02)
[2018-03-30] MEDS ORDERED: POTASSIUM CHLORIDE 20MEQ TABLET SR PO NR (08:30)
[2018-03-30] MEDS ORDERED: MIDAZOLAM HCL 5 MG/5 ML VIAL IV PRN (08:52)
[2018-03-30] MEDS ORDERED: FENTANYL CITRATE/PF 50MCG/ML 2ML VIAL IV PRN (08:53)
[2018-03-30] MEDS: NYSTATIN POWDER 15GM TOP SCH (10:24)
[2018-03-30] MEDS: MIDODRINE HCL 5MG TABLET PO SCH ×3 (10:25→18:09)
[2018-03-30] MEDS: MAGNESIUM OXIDE 400MG TABLET NG SCH (10:25)
[2018-03-30] MEDS: LACTOBACILLUS GG CAPSULE PO SCH (10:25)
[2018-03-30] MEDS: DEXT 5%/0.45% NACL 1000ML 1,000 ML IV SCH (11:06)
[2018-03-30] MEDS: RISPERIDONE 1MG TABLET PO SCH ×2 (11:06→21:00)
[2018-03-30 14:04] LABS: BG BASE EXCESS 8.5 mmol/L (-2.0-2.0); BG CARBOXYHEMOGLOBIN 0.1 % (0.5-1.5); BG DEOXYHEMOGLOBIN 1.4 % (0.0-5.0); BG FRACTION INSPIRED OXYGEN 80; BG METHEMOGLOBIN 0.3 % (0.0-1.5); BG OXYGEN SATURATION 98.6 % (92.0-98.5); BG OXYHEMOGLOBIN 98.2 % (94.0-97.0); BG PCO2 39.9 mmHg (35.0-45.0); BG PH 7.522 (7.350-7.450); BG PO2 130.2 mmHg (75.0-100.0); BG SAMPLE SITE RIGHT BRACHIAL; BG TIDAL VOLUME(mL) 500 mL; BG TOTAL HEMOGLOBIN 12.3 g/dL (12.0-18.0); BG VENT MODE VENT - A/C; BG VENT RATE 12 set
[2018-03-30] MEDS: ATORVASTATIN CALCIUM 20MG TABLET PO SCH (22:12)
[2018-03-31] VITALS (14 sets, daily range): BP systolic 99–145; BP diastolic 47–87
[2018-03-31] MEDS: DEXT 5%/0.45% NACL 1000ML 1,000 ML IV SCH ×2 (00:20→13:15)
[2018-03-31] MEDS: MORPHINE SULFATE 4 MG/ML CPJ (NOT FOR IM USE) IV PRN ×3 (01:50→16:32)
[2018-03-31] MEDS: IPRATROPIUM/ALBUTEROL 0.5-3(2.5)MG/3ML NEB HHN SCH ×2 (02:24→20:38)
[2018-03-31] MEDS: METRONIDAZOLE 500MG TABLET PO SCH ×3 (03:39→18:30)
[2018-03-31] MEDS: LORAZEPAM 2MG/ML CPJ IV PRN ×3 (05:16→21:21)
[2018-03-31 07:11] LABS: BASOPHILS % 0.6 % (0.0-2.0); EOSINOPHILS % 5.1 % (0.0-5.0); HEMATOCRIT. 34.8 % (36.0-48.0); HEMOGLOBIN. 11.4 g/dL (12.0-16.0); LYMPHOCYTES % 12.2 % (20.0-50.0); MEAN CORPUSCULAR HEMOGLOBIN 28.8 pg (28.0-32.0); MEAN CORPUSCULAR VOLUME 88.5 fL (81.0-99.0); MEAN PLATELET VOLUME 8.3 fl (7.4-10.4); MONOCYTES % 10.7 % (2.0-8.0); NEUTROPHILS % 71.4 % (40.0-76.0); PLATELET 400 x1000/uL (130-400); RED BLOOD CELL COUNT 3.94 mill/uL (4.2-5.4); RED CELL DISTRIBUTION WIDTH 14.3 % (11.6-14.6)
[2018-03-31 07:33] LABS: CHLORIDE 105 mEq/L (98-107)
[2018-03-31] MEDS: MAGNESIUM OXIDE 400MG TABLET NG SCH (08:53)
[2018-03-31] MEDS: MIDODRINE HCL 5MG TABLET PO SCH ×3 (08:53→18:30)
[2018-03-31] MEDS: LACTOBACILLUS GG CAPSULE PO SCH (08:53)
[2018-03-31] MEDS: RISPERIDONE 1MG TABLET PO SCH ×2 (09:04→21:21)
[2018-03-31 12:36] LABS: BG BASE EXCESS 6.7 mmol/L (-2.0-2.0); BG CARBOXYHEMOGLOBIN 0.8 % (0.5-1.5); BG DEOXYHEMOGLOBIN 5.7 % (0.0-5.0); BG FRACTION INSPIRED OXYGEN 50; BG HCO3 ACT 32.4 mmol/L (22.0-26.0); BG METHEMOGLOBIN 0.3 % (0.0-1.5); BG OXYGEN SATURATION 94.2 % (92.0-98.5); BG OXYHEMOGLOBIN 93.2 % (94.0-97.0); BG PH 7.429 (7.350-7.450); BG PO2 72.8 mmHg (75.0-100.0); BG SAMPLE SITE RIGHT RADIAL; BG TOTAL HEMOGLOBIN 14.9 g/dL (12.0-18.0); BG VENT MODE VENT - A/C
[2018-03-31] MEDS ORDERED: KCL 20MEQ/100ML PREMIX 100 ML IV NR (14:00)
[2018-03-31] MEDS: ATORVASTATIN CALCIUM 20MG TABLET PO SCH (21:21)
[2018-04-01] VITALS: BP 129/89
[2018-04-01 00:47] VITALS: BP 138/85
[2018-04-01 01:10] VITALS: BP 138/85
== END 2018-04-01 01:10 | DRG 4 ==
LOC: ER 15:45 → EDBEDREQ 18:38 → EDBEDREQTM 18:38 → ENRESERV 20:14 → CANRESERV 20:20 → ENRESERV 20:20 → 5WST 21:25 → CVICU 03-07 15:49 → 5EST 03-28 16:58
PROVIDERS: ADMIT Internal Medicine; ATTEND Internal Medicine
PROC: 5A09357 Assistance with Respiratory Ventilation, Less than 24 Consecutive Hours, Continuous Positive Airway Pressure (ICD-10-PCS; 2018-03-07)
PROC: 06HY33Z Insertion of Infusion Device into Lower Vein, Percutaneous Approach (ICD-10-PCS; 2018-03-07)
PROC: 5A09357 Assistance with Respiratory Ventilation, Less than 24 Consecutive Hours, Continuous Positive Airway Pressure (ICD-10-PCS; 2018-03-08)
PROC: 5A1955Z Respiratory Ventilation, Greater than 96 Consecutive Hours (ICD-10-PCS; principal; 2018-03-09)
PROC: 0BH17EZ Insertion of Endotracheal Airway into Trachea, Via Natural or Artificial Opening (ICD-10-PCS; 2018-03-09)
PROC: 4A00X4Z Measurement of Central Nervous Electrical Activity, External Approach (ICD-10-PCS; 2018-03-13)
PROC: 5A09357 Assistance with Respiratory Ventilation, Less than 24 Consecutive Hours, Continuous Positive Airway Pressure (ICD-10-PCS; 2018-03-14)
PROC: 5A09357 Assistance with Respiratory Ventilation, Less than 24 Consecutive Hours, Continuous Positive Airway Pressure (ICD-10-PCS; 2018-03-15)
PROC: 5A09357 Assistance with Respiratory Ventilation, Less than 24 Consecutive Hours, Continuous Positive Airway Pressure (ICD-10-PCS; 2018-03-16)
PROC: 5A1955Z Respiratory Ventilation, Greater than 96 Consecutive Hours (ICD-10-PCS; 2018-03-17)
PROC: 02H633Z Insertion of Infusion Device into Right Atrium, Percutaneous Approach (ICD-10-PCS; 2018-03-17)
PROC: B244ZZZ Ultrasonography of Right Heart (ICD-10-PCS; 2018-03-17)
PROC: 0BH17EZ Insertion of Endotracheal Airway into Trachea, Via Natural or Artificial Opening (ICD-10-PCS; 2018-03-17)
PROC: 0B110F4 Bypass Trachea to Cutaneous with Tracheostomy Device, Open Approach (ICD-10-PCS; 2018-03-28)
PROC: 0GBJ0ZZ Excision of Thyroid Gland Isthmus, Open Approach (ICD-10-PCS; 2018-03-28)
PROC: 0DH63UZ Insertion of Feeding Device into Stomach, Percutaneous Approach (ICD-10-PCS; 2018-03-30)
DX: A41.9 Sepsis, unspecified organism (principal); G92 Toxic encephalopathy; J18.9 Pneumonia, unspecified organism; E46 Unspecified protein-calorie malnutrition; R13.10 Dysphagia, unspecified; G71.11 Myotonic muscular dystrophy; I95.9 Hypotension, unspecified; J96.01 Acute respiratory failure with hypoxia; J96.02 Acute respiratory failure with hypercapnia; J98.11 Atelectasis; B37.9 Candidiasis, unspecified; K56.7 Ileus, unspecified; I48.0 Paroxysmal atrial fibrillation; J20.9 Acute bronchitis, unspecified; E87.6 Hypokalemia; E78.00 Pure hypercholesterolemia, unspecified; E78.5 Hyperlipidemia, unspecified; E83.42 Hypomagnesemia; F41.9 Anxiety disorder, unspecified; I11.9 Hypertensive heart disease without heart failure; I44.0 Atrioventricular block, first degree; J32.2 Chronic ethmoidal sinusitis; H02.403 Unspecified ptosis of bilateral eyelids; G90.8 Other disorders of autonomic nervous system; K59.00 Constipation, unspecified; N39.0 Urinary tract infection, site not specified; J45.909 Unspecified asthma, uncomplicated; K76.0 Fatty (change of) liver, not elsewhere classified; R62.7 Adult failure to thrive; N83.201 Unspecified ovarian cyst, right side; R73.9 Hyperglycemia, unspecified; R19.7 Diarrhea, unspecified; D47.3 Essential (hemorrhagic) thrombocythemia; Z78.1 Physical restraint status; Z79.899 Other long term (current) drug therapy; Z82.49 Family history of ischemic heart disease and other diseases of the circulatory system; Z87.440 Personal history of urinary (tract) infections; Z90.49 Acquired absence of other specified parts of digestive tract; Z93.1 Gastrostomy status; Z88.0 Allergy status to penicillin; Z68.32 Body mass index [BMI] 32.0-32.9, adult
CPT/HCPCS: 31500; 36415; 36569; 36600; 70551; 71045; 71250; 74018; 74177; 76705; 76937; 80048; 80061; 80076; 80150; 80202; 80305; 82140; 82375; 82550; 82553; 82607; 82705; 82746; 82805; 82962; 83036; 83605; 83735; 83880; 84100; 84145; 84439; 84443; 84478; 84481; 84484; 85379; 87015; 87045; 87070; 87106; 87389; 87427; 87449; 87493; 88305; 88313; 89055; 92610; 93005; 93306; 93880; 93970; 94002; 94003; 94640; 94660; 94667; 96365; 96366; 96375; 97110; 97162; 97164; 97167; 97530; 99285; A6261; C1725; C9113; J0278; J0330; J0461; J1200; J1450; J1650; J1815; J1940; J1956; J2060; J2250; J2270; J2405; J2704; J2765; J2930; J3010; J3370; J3475; J3480; J3490; J7030; J7040; J7050; J7060; J7608; J7620; J7626; Q9963; Q9967; A4315